=== PATIENT | male | born 1990 | race African-American/Black ===

== ENCOUNTER 2016-12-06 11:43 | Emergency (ER) | payer SELFPAY ==
[~2016-12-06] VITALS: Ht 185.4 cm; Wt 72.6 kg
[~2016-12-06 11:43] MED LIST: DICY10CA53 PO; PANT40TA3 PO
[2016-12-06] MEDS ORDERED: ONDANSETRON PF 4 MG/2 ML VIAL. IV ONE (12:15)
[2016-12-06] MEDS ORDERED: AMMONIA AROMATIC 15% INHALANT AMPUL. ONE (12:21)
[2016-12-06] MEDS ORDERED: FENTANYL PF 100 MCG/2 ML VIAL. IV ONE (12:30)
[2016-12-06] MEDS ORDERED: PROMETHAZINE 12.5 MG in IV NORMAL SALINE 50ML 50 ML IV PRN (12:30)
[2016-12-06 12:41] LABS: BASO % 0 % (0-3); EOS % 0 % (0-3); HEMATOCRIT 45.5 % (39.0-53.0); HEMOGLOBIN 14.6 g/dL (13.0-17.5); LYMPH # 1.9 x10^3/uL (1.0-4.8); LYMPH % 26 % (24-48); MEAN CORPUSCULAR HEMOGLOBIN 27 pg (25-35); MEAN CORPUSCULAR HGB CONC 32 g/dL (31-37); MEAN CORPUSCULAR VOLUME 85 fL (79-100); MONO % 7 % (0-9); NEUT % 66 % (31-73); PLATELET COUNT 207 x10^3/uL (140-400); RED BLOOD COUNT 5.38 x10^6/uL (4.30-5.70); RED CELL DISTRIBUTION WIDTH 14.2 % (11.5-14.5); WHITE BLOOD COUNT 7.1 x10^3/uL (4.0-11.0)
[2016-12-06 12:43] LABS: CALCIUM 9.3 mg/dL (8.5-10.1); CREATININE 0.9 mg/dL (0.7-1.3); GFR 121.6
[2016-12-06 12:49] LABS: ALBUMIN 4.2 g/dL (3.4-5.0); ALBUMIN/GLOBULIN RATIO 1.2 (1.0-1.7); TOTAL BILIRUBIN 1.2 mg/dL (0.2-1.0); TOTAL PROTEIN 7.7 g/dL (6.4-8.2)
[2016-12-06] MEDS ORDERED: MULTIVIT INFUSN,ADULT 4,VIT K 10 ML, FOLIC ACID 1 MG, THIAMINE 100 MG in IV RINGERS,LAC... IV ONE (13:00)
[2016-12-06] MEDS ORDERED: PANTOPRAZOLE IV PUSH 40 MG VIAL. IVP ONE (13:15)
[2016-12-06] MEDS: FENTANYL PF 100 MCG/2 ML VIAL. IV PRN ×2 (13:19→14:30)
--- NOTE | 2016-12-06 14:54 | PHYS DOC ---
Past Medical History Past Medical History: No Pertinent History Past Surgical History: No Surgical History Alcohol Use: Occasionally Drug Use: None Adult General Chief Complaint Chief Complaint: ABDOMINAL PAIN HPI HPI Patient is a 26 year old male brought to the ED with a complaint of abdominal pain, nausea and vomiting. Patient has had similar doesn't patient's to the ED in the past felt to be related to drinking alcohol. Patient did state that this is the case this time as well. Patient stated that he started having abdominal pain first and then a couple hours later started vomiting. No blood in the emesis. He has not taken anything for the pain. He has not been able to keep anything down. PCP none no chronic medical problems Patient denies history of pancreatitis to his knowledge Review of Systems Review of Systems Constitutional: Denies fever or chills [] Eyes: Denies change in visual acuity, redness, or eye pain [] HENT: Denies nasal congestion or sore throat [] Respiratory: Denies cough or shortness of breath [] Cardiovascular: Denies chest pain GI: As in history of present illness : Denies dysuria or hematuria [] Musculoskeletal: Denies back pain or joint pain [] Integument: Denies rash or skin lesions [] Neurologic: Denies headache, focal weakness or sensory changes [] Current Medications Current Medications Current Medications Medications (Trade) Dose Ordered Sig/Jenna Start Time Stop Time Status Last Admin Dose Admin Ammonia (Aromatic Spirit) 1 each 1 each STK-MED ONCE 12/06/16 12:21 12/06/16 12:22 DC Fentanyl Citrate (Fentanyl 2ml Vial) 75 mcg PRN Q15MIN PRN 12/06/16 13:15 12/06/16 15:10 DC 12/06/16 14:30 75 MCG Multivitamins/ Folic Acid/ Thiamine HCl/ Lactated Ringer's (Infuvite Adult/ Iv Lactated Ringers) 1,011.2 ml @ 1,000 mls/ hr 1X ONCE 12/06/16 13:00 12/06/16 14:05 DC 12/06/16 13:00 1,000 MLS/HR Ondansetron HCl (Zofran) 4 mg 1X ONCE 12/06/16 12:15 12/06/16 12:16 DC 12/06/16 12:23 4 MG Pantoprazole Sodium (Protonix Vial) 40 mg 1X ONCE 12/06/16 13:15 12/06/16 13:16 DC 12/06/16 13:21 40 MG Promethazine HCl 12.5 mg/Sodium Chloride 50.5 ml @ 151.5 mls/ hr PRN Q6HRS PRN 12/06/16 12:30 12/06/16 15:10 DC 12/06/16 12:48 151.5 MLS/HR Allergies Allergies Allergies Coded Allergies Type Severity Reaction Last Updated Verified Penicillins Adverse Reaction Mild "DOESN'T WORK" 07/15/15 Yes Physical Exam Physical Exam Constitutional: Well developed, well nourished, diaphoretic, writhing on the cart, will not hold still for exam, yelling out in pain HENT: Normocephalic, atraumatic, bilateral external ears normal, nose normal. [] Eyes: conjunctiva normal, no discharge. [] Neck: Normal range of motion, no stridor. [] Cardiovascular:Heart rate regular rhythm, no murmur [] Lungs & Thorax: Bilateral breath sounds clear to auscultation [] Abdomen: Bowel sounds normal, soft, nondistended, no masses, no pulsatile masses. Light touch of abdomen throughout elicits complaint of pain, no rebound or guarding. Skin: Warm, dry, no erythema, no rash. [] Extremities: No tenderness, no cyanosis, no clubbing, ROM intact, no edema. [] Neurologic: Alert and oriented X 3, normal motor function, normal sensory function, no focal deficits noted. [] Current Patient Data Vital Signs Vital Signs Date Time Temp Pulse Resp B/P Pulse Ox O2 Delivery O2 Flow Rate FiO2 12/06/16 15:00 60 20 151/76 99 Room Air 12/06/16 11:47 97.5 97.5 Lab Values Laboratory Tests Test 12/06/16 12:05 White Blood Count 7.1x10^3/uL (4.0-11.0) Red Blood Count 5.38x10^6/uL (4.30-5.70) Hemoglobin 14.6g/dL (13.0-17.5) Hematocrit 45.5% (39.0-53.0) Mean Corpuscular Volume 85fL (79-100) Mean Corpuscular Hemoglobin 27pg (25-35) Mean Corpuscular Hemoglobin Concent 32g/dL (31-37) Red Cell Distribution Width 14.2% (11.5-14.5) Platelet Count 207x10^3/uL (140-400) Neutrophils (%) (Auto) 66% (31-73) Lymphocytes (%) (Auto) 26% (24-48) Monocytes (%) (Auto) 7% (0-9) Eosinophils (%) (Auto) 0% (0-3) Basophils (%) (Auto) 0% (0-3) Neutrophils # (Auto) 4.7x10^3uL (1.8-7.7) Lymphocytes # (Auto) 1.9x10^3/uL (1.0-4.8) Monocytes # (Auto) 0.5x10^3/uL (0.0-1.1) Eosinophils # (Auto) 0.0x10^3/uL (0.0-0.7) Basophils # (Auto) 0.0x10^3/uL (0.0-0.2) Sodium Level 147mmol/L (136-145) H Potassium Level 4.0mmol/L (3.5-5.1) Chloride Level 104mmol/L (98-107) Carbon Dioxide Level 27mmol/L (21-32) Anion Gap 16 (6-14) H Blood Urea Nitrogen 14mg/dL (8-26) Creatinine 0.9mg/dL (0.7-1.3) Estimated GFR (Cockcroft-Gault) 121.6 BUN/Creatinine Ratio 16 (6-20) Glucose Level 109mg/dL (70-99) H Calcium Level 9.3mg/dL (8.5-10.1) Total Bilirubin 1.2mg/dL (0.2-1.0) H Aspartate Amino Transferase (AST) 22U/L (15-37) Alanine Aminotransferase (ALT) 30U/L (16-63) Alkaline Phosphatase 54U/L (46-116) Total Protein 7.7g/dL (6.4-8.2) Albumin 4.2g/dL (3.4-5.0) Albumin/Globulin Ratio 1.2 (1.0-1.7) Lipase 167U/L (73-393) Laboratory Tests 12/06/16 12:05 Laboratory Tests 3/19/17 12:05 EKG EKG [] Radiology/Procedures Radiology/Procedures [] Course & Med Decision Making Course & Med Decision Making Pertinent Labs and Imaging studies reviewed. (See chart for details) 26-year-old male presents to the ED with abdominal pain and vomiting after alcohol intake yesterday. Patient has had similar presentations in the past. I discussed with the patient IV fluids, IV pain and nausea medications, and he is agreeable to that plan. Patient was given IV pain and nausea medications and did continue to complain of abdominal pain until we were able to get on top of this pain with several doses of IV fentanyl. At one point he accidentally pulled out his IV due to his writhing and also was very diaphoretic, it was restarted by ED nursing staff. Eventually the patient became comfortable and was able to rest, stopped vomiting. He did get one whole banana bag infused. I revisited the patient and he was dozing, I woke him up, he wakes easily to voice, he stated he felt much better and was comfortable with discharge. Labs unremarkable including normal lipase. I advised the patient to stick with small amounts of clear liquids and bland foods for the next 24 hours. [] Dragon Disclaimer Dragon Disclaimer This electronic medical record was generated, in whole or in part, using a voice recognition dictation system. Departure Departure Impression: Primary Impression: Alcoholic gastritis Additional Impression: Vomiting Disposition: 01 HOME, SELF-CARE Condition: STABLE Referrals: NO PCP (PCP) Patient Instructions: Alcohol Problems, Nausea and Vomiting, [id number] Additional Instructions: For the rest of today, rest, drink clear fluids such as Sprite or juices. Don't drink any alcohol. Eat small amounts of bland foods such as bananas, canned fruit, oatmeal. Consider getting help for your alcohol intake. You can talk to your primary care doctor or attend an AA meeting. Problem Qualifiers GEOVANNI MAGANA MD Dec 06, 2016 14:54
[2016-12-06 15:00] VITALS: BP 151/76
== END 2016-12-06 15:07 | disposition home or self-care (01) ==
LOC: MERGE 11:43 → ER 11:43
DX: K29.20 Alcoholic gastritis without bleeding (principal); F10.10 Alcohol abuse, uncomplicated; R11.10 Vomiting, unspecified
CPT/HCPCS: 36415; 80053; 83690; 85027; 96365; 96374; 96375; 96376; 99284; C9113; J2405; J2550; J3010; J7120

== ENCOUNTER 2016-12-06 19:27 | Emergency (ER) | payer SELFPAY ==
[~2016-12-06] VITALS: Ht 180.3 cm; Wt 72.6 kg
[2016-12-06] MEDS ORDERED: IV NORMAL SALINE 1000ML BAG 1,000 ML IV SCH (20:24)
[2016-12-06] MEDS ORDERED: ONDANSETRON PF 4 MG/2 ML VIAL. IV ONE (20:30)
[2016-12-06] MEDS ORDERED: PANTOPRAZOLE IV PUSH 40 MG VIAL. IVP ONE (20:30)
[2016-12-06] MEDS: FENTANYL PF 100 MCG/2 ML VIAL. IV PRN ×2 (20:35→21:56)
--- NOTE | 2016-12-06 20:36 | PHYS DOC ---
Past Medical History Past Medical History: No Pertinent History Past Surgical History: No Surgical History Alcohol Use: Occasionally Drug Use: None Adult General Chief Complaint Chief Complaint: ABDOMINAL PAIN HPI HPI Patient is a 26 year old male who was discharged from the emergency department at about 1500 this afternoon and presents with recurrence of the symptoms. The patient was seen earlier today for abdominal pain, nausea and vomiting, attributed to possibly alcoholic gastritis. Labs were unremarkable, he was given symptomatic treatment and a banana bag in the ED, he felt much better and was discharged. Patient tells me that he continued to feel better, he went home and ate a hotdog and some chicken, and his pain came back and he developed vomiting again. Patient is a difficult historian since he is writhing around in pain and yelling out in pain, not responding very well to questions, requesting pain medications. Patient has had similar presentations with abdominal pain and vomiting to the emergency department in the past and has required hospitalization in the past, but I did not see a specific diagnosis other than alcohol related. PCP none, no chronic medical problems Review of Systems Review of Systems Constitutional: Denies fever or chills [] Eyes: Denies change in visual acuity, redness, or eye pain [] HENT: Denies nasal congestion or sore throat [] Respiratory: Denies cough or shortness of breath [] Cardiovascular: Denies chest pain GI: As in history of present illness : Denies dysuria or hematuria [] Musculoskeletal: Denies back pain or joint pain [] Integument: Denies rash or skin lesions [] Neurologic: Denies headache, focal weakness or sensory changes [] Current Medications Current Medications Current Medications Medications (Trade) Dose Ordered Sig/Jenna Start Time Stop Time Status Last Admin Dose Admin Fentanyl Citrate (Fentanyl 2ml Vial) 100 mcg PRN Q15MIN PRN 12/06/16 20:30 12/07/16 00:15 DC 12/06/16 21:56 100 MCG Info (Do NOT chart on this entry -- for MONITORING) 1 each PRN DAILY PRN 12/06/16 23:00 12/07/16 00:15 DC Iohexol (Omnipaque 300 Mg/ml) 75 ml 1X ONCE 12/06/16 23:00 12/06/16 23:01 DC 12/06/16 23:06 75 ML Ondansetron HCl (Zofran) 4 mg 1X ONCE 12/06/16 20:30 12/06/16 20:31 DC 12/06/16 20:37 4 MG Pantoprazole Sodium (Protonix Vial) 40 mg 1X ONCE 12/06/16 20:30 12/06/16 20:31 DC 12/06/16 20:38 40 MG Sodium Chloride (Iv Sodium Chloride 0.9% 1000ml Bag) 1,000 ml @ 1,000 mls/hr Q1H 12/06/16 20:24 12/06/16 21:23 DC 12/06/16 20:35 1,000 MLS/HR Allergies Allergies Allergies Coded Allergies Type Severity Reaction Last Updated Verified Penicillins Adverse Reaction Mild "DOESN'T WORK" 07/15/15 Yes Physical Exam Physical Exam Constitutional: Well developed, well nourished, diaphoretic, writhing on the cart, will not hold still for exam, yelling and crying out in pain, has vomited brownish benign appearing liquid into a basin HENT: Normocephalic, atraumatic, bilateral external ears normal, nose normal. [] Eyes: conjunctiva normal, no discharge. [] Neck: Normal range of motion, no stridor. [] Cardiovascular:Heart rate regular rhythm, no murmur [] Lungs & Thorax: Bilateral breath sounds clear to auscultation [] Abdomen: Bowel sounds normal, soft, nondistended, no masses, no pulsatile masses. Exam is difficult because the patient is not able to lay still and will be repeated after he is more comfortable. Skin: Warm, dry, no erythema, no rash. [] Extremities: No tenderness, no cyanosis, no clubbing, ROM intact, no edema. [] Neurologic: Alert and oriented X 3, normal motor function, normal sensory function, no focal deficits noted. [] Current Patient Data Vital Signs Vital Signs Date Time Temp Pulse Resp B/P Pulse Ox O2 Delivery O2 Flow Rate FiO2 12/06/16 22:00 97.9 90 126/86 98 97.9 12/06/16 21:56 22 Room Air Lab Values Laboratory Tests Test 12/06/16 20:06 12/06/16 23:14 White Blood Count 11.0x10^3/uL (4.0-11.0) # Red Blood Count 5.08x10^6/uL (4.30-5.70) Hemoglobin 13.7g/dL (13.0-17.5) Hematocrit 41.3% (39.0-53.0) Mean Corpuscular Volume 81fL (79-100) Mean Corpuscular Hemoglobin 27pg (25-35) Mean Corpuscular Hemoglobin Concent 33g/dL (31-37) Red Cell Distribution Width 13.7% (11.5-14.5) Platelet Count 211x10^3/uL (140-400) Neutrophils (%) (Auto) 77% (31-73) H Lymphocytes (%) (Auto) 15% (24-48) L Monocytes (%) (Auto) 8% (0-9) Eosinophils (%) (Auto) 0% (0-3) Basophils (%) (Auto) 0% (0-3) Neutrophils # (Auto) 8.5x10^3uL (1.8-7.7) H Lymphocytes # (Auto) 1.6x10^3/uL (1.0-4.8) Monocytes # (Auto) 0.9x10^3/uL (0.0-1.1) Eosinophils # (Auto) 0.0x10^3/uL (0.0-0.7) Basophils # (Auto) 0.0x10^3/uL (0.0-0.2) Sodium Level 144mmol/L (136-145) Potassium Level 4.1mmol/L (3.5-5.1) Chloride Level 104mmol/L (98-107) Carbon Dioxide Level 26mmol/L (21-32) Anion Gap 14 (6-14) Blood Urea Nitrogen 17mg/dL (8-26) Creatinine 1.2mg/dL (0.7-1.3) Estimated GFR (Cockcroft-Gault) 87.2 BUN/Creatinine Ratio 14 (6-20) Glucose Level 104mg/dL (70-99) H Calcium Level 9.6mg/dL (8.5-10.1) Total Bilirubin 1.4mg/dL (0.2-1.0) H Aspartate Amino Transferase (AST) 22U/L (15-37) Alanine Aminotransferase (ALT) 28U/L (16-63) Alkaline Phosphatase 47U/L (46-116) Total Protein 7.3g/dL (6.4-8.2) Albumin 4.2g/dL (3.4-5.0) Albumin/Globulin Ratio 1.4 (1.0-1.7) Lipase 79U/L (73-393) Urine Opiates Screen Neg (NEG) Urine Methadone Screen Neg (NEG) Urine Barbiturates Neg (NEG) Urine Phencyclidine Screen Neg (NEG) Urine Amphetamine/Methamphetamine Neg (NEG) Urine Benzodiazepines Screen Neg (NEG) Urine Cocaine Screen Neg (NEG) Urine Cannabinoids Screen Pos (NEG) Urine Ethyl Alcohol Neg (NEG) Laboratory Tests 12/06/16 20:06 Laboratory Tests 12/06/16 20:06 EKG EKG [] Radiology/Procedures Radiology/Procedures CT scan of the abdomen and pelvis read by the radiologist, no acute findings. [] Course & Med Decision Making Course & Med Decision Making Pertinent Labs and Imaging studies reviewed. (See chart for details) 26-year-old male returns with abdominal pain and vomiting after being seen earlier today and symptoms improving after ED treatment. I discussed with the patient that we will again give him IV pain and nausea medications, IV fluids, and recheck some labs, he is agreeable to that plan. After IV fluids, IV pain and nausea medicines, the patient was much more comfortable and was able to cooperate with a CT scan which was negative for acute findings. I revisited the patient and he states he is feeling much better. Patient's drug screen was positive for marijuana. I discussed with the patient that sometimes marijuana use can cause nausea and vomiting, other times withdrawal from marijuana can cause those symptoms, I encouraged him to think about whether his recurrent episodes of vomiting and abdominal pain might be related to marijuana use or withdrawal. He said he didn't think that they could be. I once again advised the patient to stick with just small amounts of clear liquids over the next 12-24 hours, advance diet very slowly and I discussed some of the things that would be easy on his stomach for the next 1-2 days. No solid foods and certainly nothing spicy or greasy. Patient was stable and comfortable and discharged to home with his roommate. [] Dragon Disclaimer Dragon Disclaimer This electronic medical record was generated, in whole or in part, using a voice recognition dictation system. Departure Departure Impression: Primary Impression: Alcoholic gastritis Additional Impression: Vomiting Disposition: HOME, SELF-CARE Condition: IMPROVED Referrals: NO PCP (PCP) Patient Instructions: Nausea and Vomiting Additional Instructions: For 12-24 hours, take only small sips of clear liquids such as Sprite, or Gatorade. After that, take only small bites of very bland foods like canned peaches, chicken noodle soup, or oatmeal. Don't eat anything more than a couple of small bites every 1-2 hours. As we discussed, sometimes when people smoke marijuana, either the marijuana can cause nausea and vomiting or withdrawing from the marijuana can cause that. Since this has happened to use several times in the past, think about whether your marijuana use might be contributing to these attacks of vomiting, it might be worth trying to go for a period of time without smoking marijuana to see if that helps. Problem Qualifiers GEOVANNI MAGANA MD Dec 06, 2016 20:36
[2016-12-06 20:38] LABS: BASO % 0 % (0-3); EOS % 0 % (0-3); HEMATOCRIT 41.3 % (39.0-53.0); HEMOGLOBIN 13.7 g/dL (13.0-17.5); LYMPH # 1.6 x10^3/uL (1.0-4.8); LYMPH % 15 % (24-48); MEAN CORPUSCULAR HEMOGLOBIN 27 pg (25-35); MEAN CORPUSCULAR HGB CONC 33 g/dL (31-37); MEAN CORPUSCULAR VOLUME 81 fL (79-100); MONO % 8 % (0-9); NEUT % 77 % (31-73); PLATELET COUNT 211 x10^3/uL (140-400); RED BLOOD COUNT 5.08 x10^6/uL (4.30-5.70); RED CELL DISTRIBUTION WIDTH 13.7 % (11.5-14.5)
[2016-12-06 20:52] LABS: CALCIUM 9.6 mg/dL (8.5-10.1); CREATININE 1.2 mg/dL (0.7-1.3); GFR 87.2; POTASSIUM 4.1 mmol/L (3.5-5.1)
[2016-12-06 21:00] LABS: ALBUMIN 4.2 g/dL (3.4-5.0); ALBUMIN/GLOBULIN RATIO 1.4 (1.0-1.7); TOTAL BILIRUBIN 1.4 mg/dL (0.2-1.0); TOTAL PROTEIN 7.3 g/dL (6.4-8.2)
[2016-12-06 22:00] VITALS: BP 126/86
[2016-12-06] MEDS ORDERED: CONTRAST GIVEN MC PRN (23:00)
[2016-12-06] MEDS ORDERED: IOHEXOL 300 MG/ML 75 ML VIAL IV ONE (23:00)
[2016-12-06 23:30] LABS: BARBITURATES NEG (NEG); BENZODIAZEPINES NEG (NEG); CANNABINOIDS POS (NEG); COCAINE NEG (NEG); ETHANOL, URINE NEG (NEG); METHADONE NEG (NEG); OPIATES NEG (NEG); PHENCYCLIDINE NEG (NEG)
--- NOTE | 2016-12-06 23:35 | RAD ---
CT abdomen and pelvis with contrast: Reason for examination: Abdominal pain with vomiting. Helical images were obtained through the abdomen and pelvis with intravenous administration of 75 cc Omnipaque 300. Reconstruction was performed in sagittal and coronal planes. The lung bases are clear. The heart size is normal with no pericardial effusion evident. No abnormalities seen in the liver, spleen, adrenal glands, gallbladder or pancreas. The abdominal aorta and inferior vena cava show no abnormalities. The kidneys show no renal masses, renal calculi, hydronephrosis or evidence of obstructive uropathy. No abnormalities seen in the appendix. The intestinal tract shows no abnormally dilated loops of bowel or evidence of bowel obstruction. No abnormalities seen in the bladder or prostate gland. No free fluid or free air is seen in the abdomen or pelvis. No acute bony abnormalities are seen. Impression: No acute abnormality evident in the abdomen or pelvis. Specifically no abnormalities seen in the gallbladder or appendix. Exposure: One or more of the following individualized dose reduction techniques were used for this examination: 1. Automated exposure control. 2. Adjustment of the mA and/or kV according to patient size. 3. Use of iterative reconstruction technique. Electronically signed by: Jelena Duncan MD (Dec 06, 2016 23:33:12)
== END 2016-12-07 00:14 | disposition home or self-care (01) ==
LOC: ER 19:27 → MERGE 19:27 → ER 12-07 00:14
DX: K29.20 Alcoholic gastritis without bleeding (principal); R11.10 Vomiting, unspecified; Z88.0 Allergy status to penicillin
CPT/HCPCS: 36415; 74177; 80053; 83690; 85027; 96361; 96374; 96375; 99285; C9113; G0481; J2405; J3010; J7030; Q9967

== ENCOUNTER 2017-01-03 12:06 | Emergency (ER) | payer SELFPAY ==
[~2017-01-03] VITALS: Ht 177.8 cm; Wt 68.0 kg
[2017-01-03 12:36] LABS: BASO % 0 % (0-3); EOS % 0 % (0-3); HEMATOCRIT 43.9 % (39.0-53.0); HEMOGLOBIN 14.3 g/dL (13.0-17.5); LYMPH # 1.8 x10^3/uL (1.0-4.8); LYMPH % 23 % (24-48); MEAN CORPUSCULAR HEMOGLOBIN 27 pg (25-35); MEAN CORPUSCULAR HGB CONC 33 g/dL (31-37); MEAN CORPUSCULAR VOLUME 83 fL (79-100); MONO % 6 % (0-9); NEUT % 70 % (31-73); PLATELET COUNT 188 x10^3/uL (140-400); RED BLOOD COUNT 5.28 x10^6/uL (4.30-5.70); RED CELL DISTRIBUTION WIDTH 13.8 % (11.5-14.5); WHITE BLOOD COUNT 7.7 x10^3/uL (4.0-11.0)
--- NOTE | 2017-01-03 12:44 | PHYS DOC ---
Past Medical History Past Medical History: No Pertinent History Past Surgical History: No Surgical History Alcohol Use: Occasionally Additional Information: DRINKS ON WEEKENDS, 3 TO 4 CUPS, PRETTY STRONG CUPS. VOSDKA, DARK WHISKEY Drug Use: Marijuana Adult General Chief Complaint Chief Complaint: ABDOMINAL PAIN HPI HPI Patient is a 26 year old male who presents with abdominal pain. Patient reports starting this morning he has been having sharp epigastric/LUQ pain. Pain accompanied by nausea and vomiting; emesis x3-4 today. He has not taken anything for symptoms. Symptoms similar to prior bouts of alcoholic gastritis; he did drink several strong drinks on Wednesday night. No other acute complaints. Review of Systems Review of Systems Constitutional: Denies fever or chills HENT: Denies nasal congestion or sore throat Respiratory: Denies cough or shortness of breath Cardiovascular: Denies chest pain GI: Epigastric/LUQ, nausea, vomiting. Denies bloody stools or diarrhea : Denies dysuria or hematuria Musculoskeletal: Denies back pain or joint pain Integument: Denies rash or skin lesions Neurologic: Denies headache, focal weakness or sensory changes Current Medications Current Medications Current Medications Medications (Trade) Dose Ordered Sig/Jenna Start Time Stop Time Status Last Admin Dose Admin Acetaminophen/ Hydrocodone Bitart (Lortab 5/325) 2 tab 1X ONCE 01/03/17 14:00 01/03/17 14:03 DC 01/03/17 14:06 2 TAB Famotidine (Pepcid) 20 mg 1X ONCE 01/03/17 12:45 01/03/17 12:46 DC 01/03/17 12:41 20 MG Morphine Sulfate 4 mg 1X ONCE 01/03/17 13:15 01/03/17 13:16 DC 01/03/17 13:24 4 MG Multi-Ingredient Mouthwash/Gargle 15 ml 15 ml 1X ONCE 01/03/17 12:45 01/03/17 12:46 DC 01/03/17 12:46 15 ML Ondansetron HCl (Zofran) 4 mg 1X ONCE 01/03/17 12:45 01/03/17 12:46 DC 01/03/17 12:40 4 MG Pantoprazole Sodium (Protonix) 40 mg 1X ONCE 01/03/17 13:15 01/03/17 13:16 DC 01/03/17 13:23 40 MG Prochlorperazine Edisylate (Compazine) 10 mg 1X ONCE 01/03/17 13:15 01/03/17 13:16 DC 01/03/17 13:23 10 MG Sodium Chloride (Iv Sodium Chloride 0.9% 1000ml Bag) 1,000 ml @ 1,000 mls/hr Q1H 01/03/17 12:45 01/03/17 13:44 DC 01/03/17 12:39 1,000 MLS/HR Allergies Allergies Allergies Coded Allergies Type Severity Reaction Last Updated Verified Penicillins Adverse Reaction Mild "DOESN'T WORK" 12/09/16 Yes Physical Exam Physical Exam Constitutional: Well developed, well nourished, non-toxic appearance HENT: Normocephalic, atraumatic, bilateral external ears normal Eyes: EOMI, conjunctiva normal, no discharge Neck: Normal range of motion, no stridor Cardiovascular: Heart rate normal, regular rhythm, no murmur Lungs & Thorax: Bilateral breath sounds clear to auscultation Abdomen: Bowel sounds normal, soft, non-distended, epigastric/LUQ TTP without rebound tenderness Skin: Warm, dry, no erythema, no rash Extremities: No obvious deformity, no edema Neurologic: Alert and oriented X 3, no gross deficits noted Psychologic: Affect normal, judgement normal, mood normal Current Patient Data Vital Signs Vital Signs Date Time Temp Pulse Resp B/P Pulse Ox O2 Delivery O2 Flow Rate FiO2 01/03/17 14:06 20 96 Room Air 01/03/17 12:18 97.7 85 149/102 97.7 Lab Values Laboratory Tests Test 01/03/17 12:25 White Blood Count 7.7x10^3/uL (4.0-11.0) Red Blood Count 5.28x10^6/uL (4.30-5.70) Hemoglobin 14.3g/dL (13.0-17.5) Hematocrit 43.9% (39.0-53.0) Mean Corpuscular Volume 83fL (79-100) Mean Corpuscular Hemoglobin 27pg (25-35) Mean Corpuscular Hemoglobin Concent 33g/dL (31-37) Red Cell Distribution Width 13.8% (11.5-14.5) Platelet Count 188x10^3/uL (140-400) Neutrophils (%) (Auto) 70% (31-73) Lymphocytes (%) (Auto) 23% (24-48) L Monocytes (%) (Auto) 6% (0-9) Eosinophils (%) (Auto) 0% (0-3) Basophils (%) (Auto) 0% (0-3) Neutrophils # (Auto) 5.4x10^3uL (1.8-7.7) Lymphocytes # (Auto) 1.8x10^3/uL (1.0-4.8) Monocytes # (Auto) 0.5x10^3/uL (0.0-1.1) Eosinophils # (Auto) 0.0x10^3/uL (0.0-0.7) Basophils # (Auto) 0.0x10^3/uL (0.0-0.2) Sodium Level 139mmol/L (136-145) Potassium Level 4.1mmol/L (3.5-5.1) Chloride Level 101mmol/L (98-107) Carbon Dioxide Level 27mmol/L (21-32) Anion Gap 11 (6-14) Blood Urea Nitrogen 16mg/dL (8-26) Creatinine 1.1mg/dL (0.7-1.3) Estimated GFR (Cockcroft-Gault) 96.4 BUN/Creatinine Ratio 15 (6-20) Glucose Level 109mg/dL (70-99) H Calcium Level 9.5mg/dL (8.5-10.1) Total Bilirubin 1.4mg/dL (0.2-1.0) H Aspartate Amino Transferase (AST) 17U/L (15-37) Alanine Aminotransferase (ALT) 25U/L (16-63) Alkaline Phosphatase 61U/L (46-116) Total Protein 7.8g/dL (6.4-8.2) Albumin 4.4g/dL (3.4-5.0) Albumin/Globulin Ratio 1.3 (1.0-1.7) Lipase 108U/L (73-393) Laboratory Tests 01/03/17 12:25 Laboratory Tests 01/03/17 12:25 EKG EKG [] Radiology/Procedures Radiology/Procedures [] Course & Med Decision Making Course & Med Decision Making Pertinent Labs and Imaging studies reviewed. (See chart for details) Patient is 26 year old male who presents with LUQ/epigastric pain. Suspect alcoholic gastritis. Will check labs to evaluate (such as for pancreatitis). IV fluids, pain meds, nausea meds, GI cocktail ordered for relief of symptoms. Blood work largely unremarkable; total bilirubin mildly elevated but at baseline. Discussed results with patient, who continues to have pain but is feeling better. I discussed refraining from any further alcohol use given pain that he experiences afterwards. Will discharge with rx for protonix, phenergan, and carafate, instructions for follow up, return precautions. Dragon Disclaimer Dragon Disclaimer This electronic medical record was generated, in whole or in part, using a voice recognition dictation system. Departure Departure Impression: Primary Impression: Alcoholic gastritis Disposition: HOME, SELF-CARE Condition: STABLE Referrals: MYLES CHAMPION (PCP) Patient Instructions: Alcoholic Gastritis-Brief Additional Instructions: Thank you for allowing us to provide care today in the Emergency Department. Your symptoms appear to be caused by your recent alcohol use. Refrain from drinking any further alcohol as it will make your abdominal pain worse. Take the provided medication as directed. Schedule a follow up appointment with your primary care doctor. Return promptly to the Emergency Department if you develop any new or concerning symptoms. Scripts Promethazine Hcl 25 Mg [id number] Mg PO Q6H PRN NAUSEA/VOMITING #15 TAB Prov:DALILA MEYER MD 01/03/17 Sucralfate (Carafate)1 Gm Tablet1 Tab PO QID #120 TAB Ref 0 Prov:DALILA MEYER MD 01/03/17 Pantoprazole Sodium (Protonix)40 Mg Tablet.dr1 Tab PO DAILY #30 TAB Ref 0 Prov:DALILA MEYER MD 01/03/17 DALILA MEYER MD Jan 03, 2017 12:44
[2017-01-03] MEDS ORDERED: LIDO:MAALOX:DONNATAL 1:1:1 15 ML SINGLE DOSE SWSW ONE (12:45)
[2017-01-03] MEDS ORDERED: FAMOTIDINE 20 MG/2 ML VIAL IVP ONE (12:45)
[2017-01-03] MEDS ORDERED: MORPHINE SULFATE 4 MG/ML DISP.SYRIN. IV ONE ×2 (12:45→13:15)
[2017-01-03] MEDS ORDERED: ONDANSETRON PF 4 MG/2 ML VIAL. IV ONE (12:45)
[2017-01-03] MEDS ORDERED: IV NORMAL SALINE 1000ML BAG 1,000 ML IV SCH (12:45)
[2017-01-03 12:48] LABS: CALCIUM 9.5 mg/dL (8.5-10.1); CREATININE 1.1 mg/dL (0.7-1.3); GFR 96.4; POTASSIUM 4.1 mmol/L (3.5-5.1)
[2017-01-03 12:53] LABS: ALBUMIN 4.4 g/dL (3.4-5.0); ALBUMIN/GLOBULIN RATIO 1.3 (1.0-1.7); TOTAL BILIRUBIN 1.4 mg/dL (0.2-1.0); TOTAL PROTEIN 7.8 g/dL (6.4-8.2)
[2017-01-03] MEDS ORDERED: PANTOPRAZOLE 40 MG TABLET.DR. PO ONE (13:15)
[2017-01-03] MEDS ORDERED: PROCHLORPERAZINE 10 MG/2 ML VIAL. IV ONE (13:15)
[2017-01-03] MEDS ORDERED: HYDROCODONE/APAP 5/325MG TABLET. PO ONE (14:00)
[2017-01-03] MEDS ORDERED: PROM25TA10 PO (14:03)
[2017-01-03] MEDS ORDERED: PANT40TA3 PO (14:03)
[2017-01-03] MEDS ORDERED: SUCR1TAB29 PO (14:03)
[2017-01-03 14:06] VITALS: BP 118/86
== END 2017-01-03 14:12 | disposition home or self-care (01) ==
LOC: ER 12:06
DX: K29.20 Alcoholic gastritis without bleeding (principal); F12.10 Cannabis abuse, uncomplicated; Z88.0 Allergy status to penicillin
CPT/HCPCS: 36415; 80053; 83690; 85027; 96361; 96374; 96375; 96376; 99284; J0780; J2270; J2405; J7030; S0028; 99285-25

== ENCOUNTER 2017-01-06 19:19 | Emergency (ER) | payer SELFPAY ==
[~2017-01-06] VITALS: Ht 177.8 cm; Wt 68.0 kg
[~2017-01-06 19:19] MED LIST changes: +PROM25TA10 PO; +SUCR1TAB29 PO
[2017-01-06 19:22] VITALS: BP 106/58
[2017-01-06 19:57] LABS: BASO % 1 % (0-3); EOS % 2 % (0-3); HEMATOCRIT 39.3 % (39.0-53.0); HEMOGLOBIN 13.1 g/dL (13.0-17.5); LYMPH # 3.1 x10^3/uL (1.0-4.8); LYMPH % 41 % (24-48); MEAN CORPUSCULAR HEMOGLOBIN 28 pg (25-35); MEAN CORPUSCULAR HGB CONC 34 g/dL (31-37); MEAN CORPUSCULAR VOLUME 83 fL (79-100); MONO % 9 % (0-9); NEUT % 48 % (31-73); PLATELET COUNT 179 x10^3/uL (140-400); RED BLOOD COUNT 4.73 x10^6/uL (4.30-5.70); RED CELL DISTRIBUTION WIDTH 13.5 % (11.5-14.5); WHITE BLOOD COUNT 7.7 x10^3/uL (4.0-11.0)
[2017-01-06 20:07] LABS: CALCIUM 9.2 mg/dL (8.5-10.1); GFR 107.7; POTASSIUM 3.4 mmol/L (3.5-5.1)
[2017-01-06 20:13] LABS: ALBUMIN 4.1 g/dL (3.4-5.0); ALBUMIN/GLOBULIN RATIO 1.4 (1.0-1.7); TOTAL BILIRUBIN 1.1 mg/dL (0.2-1.0); TOTAL PROTEIN 7.1 g/dL (6.4-8.2)
[2017-01-06] MEDS ORDERED: IV NORMAL SALINE 1000ML BAG 1,000 ML IV SCH (20:15)
[2017-01-06] MEDS ORDERED: HALOPERIDOL LACTATE 5 MG/ML VIAL. IVP ONE (20:15)
--- NOTE | 2017-01-06 20:20 | PHYS DOC ---
Past Medical History Past Medical History: No Pertinent History Past Surgical History: No Surgical History Alcohol Use: Occasionally Drug Use: Marijuana Adult General Chief Complaint Chief Complaint: ABDOMINAL PAIN HPI HPI Patient is a 26 year old male who presents with complaint of abdominal pain and vomiting. Patient has had multiple visits to the emergency department for treatment of alcoholic gastritis. Patient was last seen 3 days ago for the same symptoms. Patient states that his symptoms improved after treatment, however they worsened starting today. Patient states that he has been having difficulty advancing his diet secondary to worsening symptoms. Patient admits that he has not filled the medications that were prescribed to him to help with his symptoms from his previous visit. Patient denies any fevers or hematemesis. Patient has not taken any medications for his symptoms at home. Patient rates his pain currently as 6 out of 10. Review of Systems Review of Systems Constitutional: Denies fever or chills [] Eyes: Denies change in visual acuity, redness, or eye pain [] HENT: Denies nasal congestion or sore throat [] Respiratory: Denies cough or shortness of breath [] Cardiovascular: Denies chest pain or edema [] GI: Abdominal pain, nausea, vomiting, denies bloody stools or diarrhea [] : Denies dysuria or hematuria [] Musculoskeletal: Denies back pain or joint pain [] Integument: Denies rash or skin lesions [] Neurologic: Denies headache, focal weakness or sensory changes [] Current Medications Current Medications Current Medications Medications (Trade) Dose Ordered Sig/Jenna Start Time Stop Time Status Last Admin Dose Admin Fentanyl Citrate (Fentanyl 2ml Vial) 50 mcg 1X ONCE 01/06/17 20:30 01/06/17 20:31 DC 01/06/17 20:10 50 MCG Haloperidol Lactate (Haldol) 5 mg 1X ONCE 01/06/17 20:15 01/06/17 20:16 DC 01/06/17 20:15 5 MG Multi-Ingredient Mouthwash/Gargle 15 ml 15 ml 1X ONCE 01/06/17 20:30 01/06/17 20:31 DC 01/06/17 20:11 15 ML Ondansetron HCl (Zofran) 4 mg 1X ONCE 01/06/17 20:30 01/06/17 20:31 DC 01/06/17 20:06 4 MG Sodium Chloride (Iv Sodium Chloride 0.9% 1000ml Bag) 1,000 ml @ 1,000 mls/hr Q1H 01/06/17 20:15 01/06/17 21:14 01/06/17 20:03 1,000 MLS/HR Allergies Allergies Allergies Coded Allergies Type Severity Reaction Last Updated Verified Penicillins Adverse Reaction Mild "DOESN'T WORK" 12/09/16 Yes Physical Exam Physical Exam Constitutional: Alert, afebrile, appears in mild to moderate discomfort. [] HENT: Normocephalic, atraumatic, bilateral external ears normal, oropharynx moist, no oral exudates, nose normal. [] Eyes: PERRLA, EOMI, conjunctiva normal, no discharge. [] Neck: Normal range of motion, no tenderness, supple, no stridor. [] Cardiovascular:Heart rate regular rhythm, no murmur [] Lungs & Thorax: Bilateral breath sounds clear to auscultation [] Abdomen: Bowel sounds normal, soft, epigastric tenderness to palpation, no masses, no pulsatile masses. [] Skin: Warm, dry, no erythema, no rash. [] Back: No tenderness, no CVA tenderness. [] Extremities: No tenderness, no cyanosis, no clubbing, ROM intact, no edema. [] Neurologic: Alert and oriented X 3, normal motor function, normal sensory function, no focal deficits noted. [] Current Patient Data Vital Signs Vital Signs Date Time Temp Pulse Resp B/P Pulse Ox O2 Delivery O2 Flow Rate FiO2 01/06/17 20:10 16 01/06/17 19:22 98.4 50 106/58 94 Room Air 98.4 Lab Values Laboratory Tests Test 01/06/17 19:33 White Blood Count 7.7x10^3/uL (4.0-11.0) Red Blood Count 4.73x10^6/uL (4.30-5.70) Hemoglobin 13.1g/dL (13.0-17.5) Hematocrit 39.3% (39.0-53.0) Mean Corpuscular Volume 83fL (79-100) Mean Corpuscular Hemoglobin 28pg (25-35) Mean Corpuscular Hemoglobin Concent 34g/dL (31-37) Red Cell Distribution Width 13.5% (11.5-14.5) Platelet Count 179x10^3/uL (140-400) Neutrophils (%) (Auto) 48% (31-73) Lymphocytes (%) (Auto) 41% (24-48) Monocytes (%) (Auto) 9% (0-9) Eosinophils (%) (Auto) 2% (0-3) Basophils (%) (Auto) 1% (0-3) Neutrophils # (Auto) 3.7x10^3uL (1.8-7.7) Lymphocytes # (Auto) 3.1x10^3/uL (1.0-4.8) Monocytes # (Auto) 0.7x10^3/uL (0.0-1.1) Eosinophils # (Auto) 0.1x10^3/uL (0.0-0.7) Basophils # (Auto) 0.0x10^3/uL (0.0-0.2) Sodium Level 142mmol/L (136-145) Potassium Level 3.4mmol/L (3.5-5.1) L Chloride Level 104mmol/L (98-107) Carbon Dioxide Level 30mmol/L (21-32) Anion Gap 8 (6-14) Blood Urea Nitrogen 17mg/dL (8-26) Creatinine 1.0mg/dL (0.7-1.3) Estimated GFR (Cockcroft-Gault) 107.7 BUN/Creatinine Ratio 17 (6-20) Glucose Level 84mg/dL (70-99) Calcium Level 9.2mg/dL (8.5-10.1) Total Bilirubin 1.1mg/dL (0.2-1.0) H Aspartate Amino Transferase (AST) 15U/L (15-37) Alanine Aminotransferase (ALT) 24U/L (16-63) Alkaline Phosphatase 54U/L (46-116) Total Protein 7.1g/dL (6.4-8.2) Albumin 4.1g/dL (3.4-5.0) Albumin/Globulin Ratio 1.4 (1.0-1.7) Lipase 162U/L (73-393) Laboratory Tests 01/06/17 19:33 Laboratory Tests 01/06/17 19:33 EKG EKG Not performed [] Radiology/Procedures Radiology/Procedures Not performed [] Course & Med Decision Making Course & Med Decision Making Pertinent Labs and Imaging studies reviewed. (See chart for details) Patient was given IV fluids, fentanyl, Zofran, GI cocktail, and Haldol. Lab work pending at time of sign out. Care of patient was signed out to Dr. Rios at 2035. Dragon Disclaimer Dragon Disclaimer This electronic medical record was generated, in whole or in part, using a voice recognition dictation system. Departure Departure Impression: Primary Impression: Abdominal pain Additional Impression: Nausea and vomiting Referrals: NO PCP (PCP) Problem Qualifiers Primary Impression: Abdominal pain Abdominal location: epigastric Qualified Code: R10.13 - Epigastric pain Additional Impression: Nausea and vomiting Vomiting type: unspecified Vomiting Intractability: non-intractable Qualified Code: R11.2 - Nausea with vomiting, unspecified KALEY PARDO MD Jan 06, 2017 20:20
[2017-01-06] MEDS ORDERED: ONDANSETRON PF 4 MG/2 ML VIAL. IV ONE (20:30)
[2017-01-06] MEDS ORDERED: LIDO:MAALOX:DONNATAL 1:1:1 15 ML SINGLE DOSE SWSW ONE (20:30)
[2017-01-06] MEDS ORDERED: FENTANYL PF 100 MCG/2 ML VIAL. IV ONE (20:30)
[2017-01-06 20:48] LABS: BILIRUBIN,URINE NEGATIVE (NEG); GLUCOSE,URINE NEGATIVE (NEG); NITRITE,URINE NEGATIVE (NEG); PH,URINE 8.5; PROTEIN,URINE NEGATIVE (NEG-TRACE)
[2017-01-06 20:54] LABS: BACTERIA,URINE 0 /HPF (0-FEW); RBC,URINE 0 /HPF (0-2); SQUAMOUS EPITHELIAL CELL,UR OCC /LPF; WBC,URINE 0 /HPF (0-4)
== END 2017-01-06 21:42 | disposition home or self-care (01) ==
LOC: ER 19:19
DX: R10.13 Epigastric pain (principal); R10.32 Left lower quadrant pain; R11.2 Nausea with vomiting, unspecified; F12.10 Cannabis abuse, uncomplicated; Z88.0 Allergy status to penicillin
CPT/HCPCS: 36415; 80053; 81001; 83690; 85027; 87086; 96361; 96374; 96375; 99284; J1630; J2405; J3010; J7030

== ENCOUNTER 2017-01-25 07:12 | Emergency (ER) | payer SELFPAY ==
[~2017-01-25] VITALS: Ht 180.3 cm; Wt 63.5 kg
[2017-01-25] MEDS ORDERED: FAMOTIDINE 20 MG/2 ML VIAL IVP ONE (07:45)
[2017-01-25] MEDS ORDERED: ONDANSETRON PF 4 MG/2 ML VIAL. IV ONE (07:45)
[2017-01-25] MEDS ORDERED: IV NORMAL SALINE 1000ML BAG 1,000 ML IV ONE (07:45)
--- NOTE | 2017-01-25 07:45 | PHYS DOC ---
Past Medical History Past Medical History: No Pertinent History Past Surgical History: No Surgical History Alcohol Use: Occasionally Drug Use: Marijuana Adult General Chief Complaint Chief Complaint: ABDOMINAL PAIN HPI HPI Patient is a 26 year old male with history of alcoholic gastritis who presents today with left upper quadrant abdominal pain that he states has been going on for months. Patient states he was at work this morning and decided to come to the ED to be evaluated. He is also complaining of nausea and vomiting. Denies any diarrhea. He states the last time he drank was 1-1/2 months ago. Patient denies any hematemesis. Patient is restless, cursing, and crying out loud. very poor historian. I asked him if he has followed up with GI he states he does not know how to read and hence does not know where to find information on following up. Review of Systems Review of Systems Constitutional: Denies fever or chills [] Eyes: Denies change in visual acuity, redness, or eye pain [] HENT: Denies nasal congestion or sore throat [] Respiratory: Denies cough or shortness of breath [] Cardiovascular: No additional information not addressed in HPI [] GI:LUQ abdominal pain, nausea, vomiting, : Denies dysuria or hematuria [] Musculoskeletal: Denies back pain or joint pain [] Integument: Denies rash or skin lesions [] Neurologic: Denies headache, focal weakness or sensory changes [] Endocrine: Denies polyuria or polydipsia [] Current Medications Current Medications Current Medications Medications (Trade) Dose Ordered Sig/Jenna Start Time Stop Time Status Last Admin Dose Admin Famotidine (Pepcid) 20 mg 1X ONCE 01/25/17 07:45 01/25/17 07:46 DC 01/25/17 07:51 20 MG Fentanyl Citrate (Fentanyl 2ml Vial) 50 mcg 1X ONCE 01/25/17 07:45 01/25/17 07:46 DC 01/25/17 08:00 50 MCG Haloperidol Lactate (Haldol) 5 mg 1X ONCE 01/25/17 08:15 01/25/17 08:16 DC 01/25/17 08:28 5 MG Info (Do NOT chart on this entry -- for MONITORING) 1 each PRN DAILY PRN 01/25/17 09:15 01/27/17 09:14 Iohexol (Omnipaque 300 Mg/ml) 75 ml 1X ONCE 5/8/17 09:15 01/25/17 09:16 DC 01/25/17 09:20 75 ML Ketamine HCl 10 mg 1X ONCE 01/25/17 08:45 01/25/17 08:46 DC 01/25/17 08:51 10 MG Morphine Sulfate 1 mg 1X ONCE 01/25/17 11:00 01/25/17 11:01 Ondansetron HCl (Zofran) 4 mg 1X ONCE 01/25/17 07:45 01/25/17 07:46 DC 01/25/17 07:51 4 MG Sodium Chloride 1,000 ml @ 1,000 mls/hr 1X ONCE 01/25/17 07:45 01/25/17 08:44 DC 01/25/17 07:52 1,000 MLS/HR Allergies Allergies Allergies Coded Allergies Type Severity Reaction Last Updated Verified Penicillins Adverse Reaction Mild "DOESN'T WORK" 12/09/16 Yes Physical Exam Physical Exam Constitutional: Well developed, well nourished, no acute distress, non-toxic appearance. [] HENT: Normocephalic, atraumatic, bilateral external ears normal, oropharynx moist, no oral exudates, nose normal. [] Eyes: PERRLA, EOMI, conjunctiva normal, no discharge. [] Neck: Normal range of motion, no tenderness, supple, no stridor. [] Cardiovascular:Heart rate regular rhythm, no murmur [] Lungs & Thorax: Bilateral breath sounds clear to auscultation [] Abdomen: Bowel sounds normal, soft, no tenderness, no masses, no pulsatile masses. [] Skin: Warm, dry, no erythema, no rash. [] Back: No tenderness, no CVA tenderness. [] Extremities: No tenderness, no cyanosis, no clubbing, ROM intact, no edema. [] Neurologic: Alert and oriented X 3, normal motor function, normal sensory function, no focal deficits noted. [] Psychologic: Affect normal, judgement normal, mood normal. [] Current Patient Data Vital Signs Vital Signs Date Time Temp Pulse Resp B/P (MAP) Pulse Ox O2 Delivery O2 Flow Rate FiO2 01/25/17 09:35 18 99 Room Air 01/25/17 09:27 82 144/97 (113) 01/25/17 07:25 97.5 97.5 Lab Values Laboratory Tests Test 01/25/17 07:30 01/25/17 09:30 White Blood Count 7.3 x10^3/uL (4.0-11.0) Red Blood Count 5.05 x10^6/uL (4.30-5.70) Hemoglobin 13.7 g/dL (13.0-17.5) Hematocrit 42.6 % (39.0-53.0) Mean Corpuscular Volume 84 fL (79-100) Mean Corpuscular Hemoglobin 27 pg (25-35) Mean Corpuscular Hemoglobin Concent 32 g/dL (31-37) Red Cell Distribution Width 14.0 % (11.5-14.5) Platelet Count 178 x10^3/uL (140-400) Neutrophils (%) (Auto) 49 % (31-73) Lymphocytes (%) (Auto) 41 % (24-48) Monocytes (%) (Auto) 7 % (0-9) Eosinophils (%) (Auto) 2 % (0-3) Basophils (%) (Auto) 1 % (0-3) Neutrophils # (Auto) 3.5 x10^3uL (1.8-7.7) Lymphocytes # (Auto) 3.0 x10^3/uL (1.0-4.8) Monocytes # (Auto) 0.5 x10^3/uL (0.0-1.1) Eosinophils # (Auto) 0.1 x10^3/uL (0.0-0.7) Basophils # (Auto) 0.1 x10^3/uL (0.0-0.2) Sodium Level 142 mmol/L (136-145) Potassium Level 3.8 mmol/L (3.5-5.1) Chloride Level 103 mmol/L (98-107) Carbon Dioxide Level 25 mmol/L (21-32) Anion Gap 14 (6-14) Blood Urea Nitrogen 15 mg/dL (8-26) Creatinine 1.1 mg/dL (0.7-1.3) Estimated GFR (Cockcroft-Gault) 96.4 BUN/Creatinine Ratio 14 (6-20) Glucose Level 98 mg/dL (70-99) Calcium Level 9.9 mg/dL (8.5-10.1) Total Bilirubin 0.7 mg/dL (0.2-1.0) Aspartate Amino Transferase (AST) 17 U/L (15-37) Alanine Aminotransferase (ALT) 21 U/L (16-63) Alkaline Phosphatase 56 U/L (46-116) Total Protein 7.4 g/dL (6.4-8.2) Albumin 4.3 g/dL (3.4-5.0) Albumin/Globulin Ratio 1.4 (1.0-1.7) Lipase 133 U/L (73-393) Ethyl Alcohol Level < 10 mg/dL (0-10) Urine Collection Type Unknown Urine Color Yellow Urine Clarity Clear Urine pH 7.0 Urine Specific [place] 1.025 Urine Protein Negative mg/dL (NEG-TRACE) Urine Glucose (UA) Negative mg/dL (NEG) Urine Ketones (Stick) Negative mg/dL (NEG) Urine Blood Negative (NEG) Urine Nitrite Negative (NEG) Urine Bilirubin Negative (NEG) Urine Urobilinogen Dipstick 0.2 mg/dL (0.2 mg/dL) Urine Leukocyte Esterase Negative (NEG) Urine RBC 1-2 /HPF (0-2) Urine WBC 1-4 /HPF (0-4) Urine Squamous Epithelial Cells Few /LPF Urine Bacteria 0 /HPF (0-FEW) Urine Mucus Marked /LPF Urine Opiates Screen Neg (NEG) Urine Methadone Screen Neg (NEG) Urine Barbiturates Neg (NEG) Urine Phencyclidine Screen Neg (NEG) Urine Amphetamine/Methamphetamine Neg (NEG) Urine Benzodiazepines Screen Pos (NEG) Urine Cocaine Screen Neg (NEG) Urine Cannabinoids Screen Pos (NEG) Urine Ethyl Alcohol Neg (NEG) Laboratory Tests 01/25/17 07:30 Laboratory Tests 01/25/17 07:30 EKG EKG [] Radiology/Procedures Radiology/Procedures [] Course & Med Decision Making Course & Med Decision Making Pertinent Labs and Imaging studies reviewed. (See chart for details) Patient is in the ED with complaints of left upper quadrant abdominal pain nausea and vomiting. Has history of alcoholic gastritis. He is well known to this ED for his symptoms. He states the last time he had to drink was one and a half months ago. Patient is screaming cursing calling people names in the ED. He is very had to work with. We initially gave him fentanyl Haldol famotidine and Zofran with no relief of his symptoms. We gave him morphine and ketamine which helped tremendously with his symptoms. His labs are negative. CT of the abdomen and pelvic is negative for any acute findings. His urine shows is using marijuana which he was advised to stop using because it increases episodes of nausea and vomiting We provided him a GI doctor and made sure we highlighted his paperwork to make sure he sees the contact information. Discharged with Zofran, famotidine, and dicyclomine. Dragon Disclaimer Dragon Disclaimer This electronic medical record was generated, in whole or in part, using a voice recognition dictation system. Departure Departure Impression: Primary Impression: Abdominal pain Additional Impressions: Alcoholic gastritis Marijuana abuse Disposition: HOME, SELF-CARE Condition: STABLE Referrals: NO PCP (PCP) LISA HARVEY MD Call his office and follow up as soon as you can Patient Instructions: Abdominal Pain, Alcoholic Gastritis-Brief, Marijuana Abuse and Chemical Dependency Additional Instructions: You were seen for chronic abdominal pain due to alcoholic gastritis. We highly recommend you follow-up with the touch up carver provided. His name is Dr. Harvey 's contact information is highlighted in this paperwork. Please stop using marijuana this drug is know to increase episodes of nausea and vomiting. Scripts Dicyclomine Hcl (DICYCLOMINE HCL) 20 Mg Tablet 1 TAB PO TID, #30 TAB 1 Refill Prov: KG BRIGGS APRN 01/25/17 Famotidine (FAMOTIDINE) 20 Mg Tablet 20 MG PO DAILY, #30 TAB Prov: GK BRIGGS APRN 01/25/17 Ondansetron (ZOFRAN ODT) 4 Mg Tab.rapdis 1 TAB SL Q8HRS, #15 TAB Prov: GK BRIGGS APRN 01/25/17 Problem Qualifiers Primary Impression: Abdominal pain Abdominal location: left upper quadrant Qualified Codes: R10.12 - Left upper quadrant pain Additional Impressions: Alcoholic gastritis Chronicity: chronic Gastritis bleeding: without bleeding Qualified Codes: K29.20 - Alcoholic gastritis without bleeding KG BRIGGS APRN January 25, 2017 07:45
[2017-01-25 07:52] LABS: BASO # 0.1 x10^3/uL (0.0-0.2); BASO % 1 % (0-3); EOS % 2 % (0-3); HEMATOCRIT 42.6 % (39.0-53.0); HEMOGLOBIN 13.7 g/dL (13.0-17.5); LYMPH % 41 % (24-48); MEAN CORPUSCULAR HEMOGLOBIN 27 pg (25-35); MEAN CORPUSCULAR HGB CONC 32 g/dL (31-37); MEAN CORPUSCULAR VOLUME 84 fL (79-100); MONO % 7 % (0-9); NEUT % 49 % (31-73); PLATELET COUNT 178 x10^3/uL (140-400); RED BLOOD COUNT 5.05 x10^6/uL (4.30-5.70); WHITE BLOOD COUNT 7.3 x10^3/uL (4.0-11.0)
[2017-01-25] MEDS: fentaNYL PF VIAL 100 MCG/2 ML VIAL IV ONE ×2 (07:52→08:00)
[2017-01-25 08:00] LABS: CALCIUM 9.9 mg/dL (8.5-10.1); CREATININE 1.1 mg/dL (0.7-1.3); GFR 96.4; POTASSIUM 3.8 mmol/L (3.5-5.1)
[2017-01-25 08:06] LABS: ALBUMIN 4.3 g/dL (3.4-5.0); ALBUMIN/GLOBULIN RATIO 1.4 (1.0-1.7); TOTAL BILIRUBIN 0.7 mg/dL (0.2-1.0); TOTAL PROTEIN 7.4 g/dL (6.4-8.2)
[2017-01-25] MEDS ORDERED: HALOPERIDOL LACTATE 5 MG/ML VIAL. IVP ONE (08:15)
[2017-01-25] MEDS ORDERED: KETAMINE HCL 500 MG/10 ML VIAL. IV ONE (08:45)
[2017-01-25] MEDS ORDERED: IOHEXOL 300 MG/ML 75 ML VIAL IV ONE (09:15)
[2017-01-25] MEDS ORDERED: CONTRAST GIVEN MC PRN (09:15)
[2017-01-25 09:42] LABS: BILIRUBIN,URINE NEGATIVE (NEG); GLUCOSE,URINE NEGATIVE (NEG); NITRITE,URINE NEGATIVE (NEG); PROTEIN,URINE NEGATIVE (NEG-TRACE); UROBILINOGEN,URINE 0.2 mg/dL (0.2 mg/dL)
[2017-01-25] MEDS ORDERED: MORPHINE SULFATE 2 MG/ML DISP.SYRIN. IV ONE ×2 (09:45→11:00)
[2017-01-25 09:48] LABS: BARBITURATES NEG (NEG); BENZODIAZEPINES POS (NEG); CANNABINOIDS POS (NEG); COCAINE NEG (NEG); METHADONE NEG (NEG); OPIATES NEG (NEG); PHENCYCLIDINE NEG (NEG)
[2017-01-25 10:04] LABS: BACTERIA,URINE 0 /HPF (0-FEW); SQUAMOUS EPITHELIAL CELL,UR FEW /LPF
--- NOTE | 2017-01-25 10:45 | RAD ---
Indication: Abdominal pain. Axial imaging through the abdomen and pelvis was performed after the administration of intravenous contrast. No prior studies are available for comparison. The lung bases are clear. The liver and gallbladder are unremarkable. The pancreas and spleen are unremarkable. No adrenal mass is detected. The small and large bowel loops are normal caliber. The appendix is unremarkable. No ascites is detected. Bladder is unremarkable. Impression: Unremarkable CT of the abdomen and pelvis with contrast. No acute abnormality is detected. MTDD
[2017-01-25] MEDS ORDERED: FAMO20TA5 PO (11:01)
[2017-01-25] MEDS ORDERED: ONDA4TAB10 SL (11:01)
[2017-01-25] MEDS ORDERED: DICY20TA3 PO (11:01)
[2017-01-25 11:10] VITALS: BP 139/83
== END 2017-01-25 11:20 | disposition home or self-care (01) ==
LOC: ER 07:12
DX: K29.20 Alcoholic gastritis without bleeding (principal); F12.10 Cannabis abuse, uncomplicated; F10.10 Alcohol abuse, uncomplicated; Z88.1 Allergy status to other antibiotic agents; Y90.9 Presence of alcohol in blood, level not specified
CPT/HCPCS: 36415; 74177; 80053; 80305; 80320; 81001; 83690; 85027; 96361; 96374; 96375; 96376; 99285; J1630; J2270; J2405; J3010; J3490; J7030; Q9967; S0028; G0480; G0481

== ENCOUNTER 2017-03-15 20:04 | Emergency (ER) | payer SELFPAY ==
[~2017-03-15] VITALS: Ht 180.3 cm; Wt 68.0 kg
[~2017-03-15 20:04] MED LIST changes: +DICY20TA3 PO; +FAMO20TA5 PO; +ONDA4TAB10 SL; -SUCR1TAB29 PO; +SUCR1TAB35 PO
[2017-03-15 21:22] LABS: BASO # 0.1 x10^3/uL (0.0-0.2); BASO % 1 % (0-3); EOS % 1 % (0-3); HEMATOCRIT 43.2 % (39.0-53.0); HEMOGLOBIN 14.4 g/dL (13.0-17.5); LYMPH # 3.4 x10^3/uL (1.0-4.8); LYMPH % 34 % (24-48); MEAN CORPUSCULAR HEMOGLOBIN 28 pg (25-35); MEAN CORPUSCULAR HGB CONC 33 g/dL (31-37); MEAN CORPUSCULAR VOLUME 84 fL (79-100); MONO % 9 % (0-9); NEUT % 56 % (31-73); PLATELET COUNT 227 x10^3/uL (140-400); RED BLOOD COUNT 5.17 x10^6/uL (4.30-5.70); RED CELL DISTRIBUTION WIDTH 13.7 % (11.5-14.5); WHITE BLOOD COUNT 9.9 x10^3/uL (4.0-11.0)
[2017-03-15 21:34] LABS: CALCIUM 9.8 mg/dL (8.5-10.1); CREATININE 1.1 mg/dL (0.7-1.3); GFR 96.4; POTASSIUM 3.1 mmol/L (3.5-5.1)
[2017-03-15 21:40] LABS: ALBUMIN 4.6 g/dL (3.4-5.0); DIRECT BILIRUBIN 0.2 mg/dL (0.0-0.2); TOTAL BILIRUBIN 1.7 mg/dL (0.2-1.0); TOTAL PROTEIN 8.2 g/dL (6.4-8.2)
[2017-03-15] MEDS: fentaNYL PF VIAL 100 MCG/2 ML VIAL IV PRN ×3 (21:54→23:36)
[2017-03-15] MEDS ORDERED: IV NORMAL SALINE 1000ML BAG 1,000 ML IV ONE ×2 (22:00→23:00)
[2017-03-15] MEDS ORDERED: ONDANSETRON PF 4 MG/2 ML VIAL. IV ONE (22:00)
[2017-03-15] MEDS ORDERED: LIDO:MAALOX:DONNATAL 1:1:1 15 ML SINGLE DOSE SWSW ONE (22:00)
[2017-03-15] MEDS ORDERED: FAMOTIDINE 20 MG/2 ML VIAL IVP ONE (22:00)
[2017-03-15] MEDS ORDERED: CONTRAST GIVEN MC PRN (23:00)
[2017-03-15] MEDS: POTASSIUM CHLORIDE 10MEQ 100 ML IV SCH (23:28)
[2017-03-15] MEDS ORDERED: IOHEXOL 300 MG/ML 75 ML VIAL IV ONE ×2 (23:30→23:45)
[2017-03-15] MEDS ORDERED: MORPHINE SULFATE 2 MG/ML DISP.SYRIN. ONE (23:32)
[2017-03-15] MEDS ORDERED: MORPHINE SULFATE 2 MG/ML DISP.SYRIN. IV PRN (23:45)
[2017-03-15] MEDS ORDERED: IOHEXOL 240 MG/ML 50ML VIAL. PO ONE (23:45)
[2017-03-16] MEDS: POTASSIUM CHLORIDE 10MEQ 100 ML IV SCH (00:27)
--- NOTE | 2017-03-16 00:28 | PHYS DOC ---
Past Medical History Past Medical History: Other Additional Past Medical Histor: abd pain, etoh abuse Past Surgical History: No Surgical History Alcohol Use: Occasionally Drug Use: Marijuana Adult General Chief Complaint Chief Complaint: ABDOMINAL PAIN HPI HPI 18-year-old male presenting to the emergency department with epigastric abdominal pain. Started approximately an hour ago. He has a chronic history of chronic abdominal pain. He describes the pain as a burning sensation that is moderate, nonradiating and without alleviating or exacerbating factors. He denies fevers chills but has had nausea with small amounts of vomiting. He denies any blood in his vomit. He reports it is nonbilious. He denies fevers or chills. He denies any other symptoms. Review of systems is negative for chest pain shortness of breath fevers chills. Positive for nausea with small episodes of vomiting. All other review of systems is negative unless otherwise noted in history of present illness. ED course: 18-year-old male presenting to the emergency department today with epigastric abdominal pain. Initial triage vital signs patient is afebrile with a normal heart rate. Blood pressure mildly elevated. Pertinent physical exam findings show soft nontender abdomen.Soft nontender abdomen without rebound tenderness or guarding present. Negative McBurneys point. Negative Benson sign. No ecchymosis present. Labs obtained along with CT of the abdomen pelvis. Reexamination of the abdomen continues to show a nontender abdomen. CT abdomen pelvis negative. Labs showed low potassium. IV potassium given in the emergency department. Patient was subsequent discharged home with Zofran and potassium to follow up with primary care doctor in 2-3 days. Review of Systems Review of Systems SEE ABOVE. Current Medications Current Medications Current Medications Medications (Trade) Dose Ordered Sig/Jenna Start Time Stop Time Status Last Admin Dose Admin Famotidine (Pepcid) 20 mg 1X ONCE 03/15/17 22:00 03/15/17 22:01 DC 03/15/17 21:53 20 MG Fentanyl Citrate (Fentanyl 2ml Vial) 25 mcg 1X PRN PRN 03/15/17 21:45 03/15/17 23:36 DC 03/15/17 23:36 25 MCG Info (Do NOT chart on this entry -- for MONITORING) 1 each PRN DAILY PRN 03/15/17 23:00 03/17/17 22:59 Iohexol (Omnipaque 240 Mg/ml) 50 ml 1X ONCE 03/15/17 23:45 03/15/17 23:46 DC 03/16/17 00:47 50 ML Iohexol (Omnipaque 300 Mg/ml) 75 ml 1X ONCE 03/15/17 23:45 03/15/17 23:46 DC Morphine Sulfate 2 mg STK-MED ONCE 03/15/17 23:32 03/15/17 23:33 DC Multi-Ingredient Mouthwash/Gargle (Gi Cocktail Single Dose) 15 ml 1X ONCE 03/15/17 22:00 03/15/17 22:01 DC 03/15/17 21:53 15 ML Ondansetron HCl (Zofran) 4 mg 1X ONCE 03/15/17 22:00 03/15/17 22:01 DC 03/15/17 21:53 4 MG Potassium Chloride 100 ml @ 100 mls/hr Q1H 03/15/17 23:00 03/16/17 00:59 DC 03/16/17 00:27 100 MLS/HR Sodium Chloride 1,000 ml @ 100 mls/hr 1X ONCE 03/15/17 23:00 03/16/17 08:59 03/15/17 23:37 100 MLS/HR Allergies Allergies Allergies Coded Allergies Type Severity Reaction Last Updated Verified Penicillins Adverse Reaction Mild "DOESN'T WORK" 12/09/16 Yes Physical Exam Physical Exam Constitutional: Well developed, well nourished, no acute distress, non-toxic appearance. [] HENT: Normocephalic, atraumatic, bilateral external ears normal, oropharynx moist, no oral exudates, nose normal. [] Eyes: PERRLA, EOMI, conjunctiva normal, no discharge. [] Neck: Normal range of motion, no tenderness, supple, no stridor. [] Cardiovascular:Heart rate regular rhythm, no murmur [] Lungs & Thorax: Bilateral breath sounds clear to auscultation [] Abdomen: Bowel sounds normal, soft, no tenderness, no masses, no pulsatile masses. [] SEE ABOVE Skin: Warm, dry, no erythema, no rash. [] Back: No tenderness, no CVA tenderness. [] Extremities: No tenderness, no cyanosis, no clubbing, ROM intact, no edema. [] Neurologic: Alert and oriented X 3, normal motor function, normal sensory function, no focal deficits noted. [] Psychologic: Affect normal, judgement normal, mood normal. [] Current Patient Data Vital Signs Vital Signs Date Time Temp Pulse Resp B/P (MAP) Pulse Ox O2 Delivery O2 Flow Rate FiO2 03/16/17 00:34 72 18 124/59 (80) 97 Room Air 03/15/17 20:28 97.3 97.3 Lab Values Laboratory Tests Test 03/15/17 20:35 White Blood Count 9.9 x10^3/uL (4.0-11.0) Red Blood Count 5.17 x10^6/uL (4.30-5.70) Hemoglobin 14.4 g/dL (13.0-17.5) Hematocrit 43.2 % (39.0-53.0) Mean Corpuscular Volume 84 fL (79-100) Mean Corpuscular Hemoglobin 28 pg (25-35) Mean Corpuscular Hemoglobin Concent 33 g/dL (31-37) Red Cell Distribution Width 13.7 % (11.5-14.5) Platelet Count 227 x10^3/uL (140-400) Neutrophils (%) (Auto) 56 % (31-73) Lymphocytes (%) (Auto) 34 % (24-48) Monocytes (%) (Auto) 9 % (0-9) Eosinophils (%) (Auto) 1 % (0-3) Basophils (%) (Auto) 1 % (0-3) Neutrophils # (Auto) 5.5 x10^3uL (1.8-7.7) Lymphocytes # (Auto) 3.4 x10^3/uL (1.0-4.8) Monocytes # (Auto) 0.9 x10^3/uL (0.0-1.1) Eosinophils # (Auto) 0.1 x10^3/uL (0.0-0.7) Basophils # (Auto) 0.1 x10^3/uL (0.0-0.2) Sodium Level 142 mmol/L (136-145) Potassium Level 3.1 mmol/L (3.5-5.1) L Chloride Level 100 mmol/L (98-107) Carbon Dioxide Level 28 mmol/L (21-32) Anion Gap 14 (6-14) Blood Urea Nitrogen 17 mg/dL (8-26) Creatinine 1.1 mg/dL (0.7-1.3) Estimated GFR (Cockcroft-Gault) 96.4 Glucose Level 94 mg/dL (70-99) Calcium Level 9.8 mg/dL (8.5-10.1) Total Bilirubin 1.7 mg/dL (0.2-1.0) H Direct Bilirubin 0.2 mg/dL (0.0-0.2) Aspartate Amino Transferase (AST) 17 U/L (15-37) Alanine Aminotransferase (ALT) 25 U/L (16-63) Alkaline Phosphatase 63 U/L (46-116) Total Protein 8.2 g/dL (6.4-8.2) Albumin 4.6 g/dL (3.4-5.0) Lipase 133 U/L (73-393) Laboratory Tests 03/15/17 20:35 Laboratory Tests 03/15/17 20:35 EKG EKG [] Radiology/Procedures Radiology/Procedures [] Course & Med Decision Making Course & Med Decision Making Pertinent Labs and Imaging studies reviewed. (See chart for details) [] Dragon Disclaimer Dragon Disclaimer This electronic medical record was generated, in whole or in part, using a voice recognition dictation system. Departure Departure Impression: Primary Impression: Abdominal pain Additional Impression: Nausea and vomiting Disposition: 01 HOME, SELF-CARE Condition: STABLE Referrals: NO PCP (PCP) NIR VENTURA MD Patient Instructions: Abdominal Pain Additional Instructions: Thank you for allowing us to participate in your care today. Followup with your primary care physician in 3 days if your symptoms do not improve. Call your Primary Doctor tomorrow and inform them of your visit today. If you do not have a primary care provider you can ask for a list of our primary care providers. Return to the emergency department you have any new or concerning findings. This should be evaluated by the primary care physician and any necessary consulting services for continued management within a few days after discharge. Return to emergency room if you have any new or concerning symptoms including but not limited to fever, chills, nausea, vomiting, intractable pain, any new rashes, chest pain, shortness of air, uncontrolled bleeding, difficulty breathing, and/or vision loss. Scripts Potassium Chloride (POTASSIUM CHLORIDE) 10 Meq Capsule.er 10 MEQ PO DAILY for 5 Days, #5 TAB.SR Prov: MEGAN RODRIGUEZ MD 03/16/17 Ondansetron (ZOFRAN ODT) 4 Mg Tab.rapdis 1 TAB SL PRN Q8HRS Y for NAUSEA, #6 TAB Prov: MEGAN RODRIGUEZ MD 03/16/17 Famotidine (PEPCID) 40 Mg Tablet 40 MG PO HS, #14 TAB 0 Refills Prov: MEGAN RODRIGUEZ MD 03/16/17 Problem Qualifiers MEGAN RODRIGUEZ MD Mar 16, 2017 00:28
[2017-03-16 00:34] VITALS: BP 124/59
--- NOTE | 2017-03-16 01:54 | RAD ---
EXAM: Abdomen and pelvis CT with intravenous contrast. HISTORY: 26-year-old male with abdominal pain, dizziness and vomiting.. TECHNIQUE: Computed tomographic images of the abdomen and pelvis were obtained following the administration of 75 cc of Omni 300 intravenous contrast. Oral contrast was also administered, although subsequently vomited. Multiplanar reformatting was performed. PQRS compliance statement: One or more of the following individualized dose reduction techniques were utilized for this examination: 1. Automated exposure control 2. Adjustment of the mA and/or kV according to patient size 3. Use of iterative reconstruction technique COMPARISON: January 2017. FINDINGS: The lung bases demonstrate no acute finding. The liver, spleen, gallbladder, pancreas, adrenal glands and bilateral kidneys demonstrate no focal abnormality. The GI tract demonstrates no dilated bowel loops to suggest obstruction. The appendix was previously seen in the retrocecal location, which is partially visualized on today's exam, appearing normal in caliber without adjacent soft tissue stranding. Evaluation of the bowel loops is limited given lack of intra-abdominal fat. The urinary bladder is grossly unremarkable. No intra-abdominal or pelvic free fluid, free air or significant lymphadenopathy is seen. Aorta is normal in caliber. Overlying soft tissues and visualized osseous structures demonstrate no acute interval change. IMPRESSION: No acute intra-abdominal or pelvic process seen. Appendix appears normal in caliber in the retrocecal location. No evidence of obstruction. Otherwise, bowel loops are somewhat difficult to visualize given lack of intra-abdominal fat. Electronically signed by: Cindy Mares MD (03/16/2017 1:51 AM)
[2017-03-16 02:01] LABS: BILIRUBIN,URINE NEGATIVE (NEG); GLUCOSE,URINE NEGATIVE (NEG); NITRITE,URINE NEGATIVE (NEG); PROTEIN,URINE 30 mg/dL (NEG-TRACE)
[2017-03-16] MEDS ORDERED: ONDA4TAB10 SL (02:07)
[2017-03-16] MEDS ORDERED: POTASSIUM CHLO10 MEQ PO (02:07)
[2017-03-16] MEDS ORDERED: FAMO40TA57 PO (02:07)
[2017-03-16 02:25] LABS: BACTERIA,URINE 0 /HPF (0-FEW); RBC,URINE OCC /HPF (0-2); SQUAMOUS EPITHELIAL CELL,UR OCC /LPF
== END 2017-03-16 02:18 | disposition home or self-care (01) ==
LOC: ER 20:04
DX: R10.13 Epigastric pain (principal); R11.2 Nausea with vomiting, unspecified; F12.10 Cannabis abuse, uncomplicated; G89.29 Other chronic pain; R03.0 Elevated blood-pressure reading, without diagnosis of hypertension; Z88.0 Allergy status to penicillin
CPT/HCPCS: 36415; 74177; 80048; 80076; 81001; 83690; 85027; 96361; 96374; 96375; 96376; 99285; J2270; J2405; J3010; J3480; J7030; Q9966; Q9967; S0028

== ENCOUNTER 2019-05-14 03:56 | Emergency (ER) | payer SELFPAY ==
[~2019-05-14] VITALS: Ht 177.8 cm; Wt 68.0 kg
[~2019-05-14 03:56] MED LIST changes: +FAMO40TA57 PO; -PANT40TA3 PO; +PANT40TA77 PO; +POTA10TA12 PO
[2019-05-14 04:04] VITALS: BP 138/87
[2019-05-14] MEDS ORDERED: CYCL5TAB PO (04:29)
--- NOTE | 2019-05-14 04:31 | PHYS DOC ---
Past Medical History Past Medical History: Alcoholism, Other Additional Past Medical Histor: abd pain, etoh abuse Past Surgical History: No Surgical History Alcohol Use: Occasionally Drug Use: Marijuana Adult General Chief Complaint Chief Complaint: BACK PAIN - NO INJURY HPI HPI Patient is a 28 year old m p/w low back pain onset a few hours ago played bball today lifted legs yesterday does not recall a significant pop no b/b incontinence no numbness/tingling/wekness pain radiates up right back to neck/shoulder Patient is worse with movement Review of Systems Review of Systems Constitutional: Denies fever or chills [] Eyes: Denies change in visual acuity, redness, or eye pain [] HENT: Denies nasal congestion or sore throat [] Respiratory: Denies cough or shortness of breath [] Neurologic: Denies headache, focal weakness or sensory changes [] Endocrine: Denies polyuria or polydipsia [] All other systems were reviewed and found to be within normal limits, except as documented in this note. Current Medications Current Medications Current Medications Medications (Trade) Dose Ordered Sig/Jenna Start Time Stop Time Status Last Admin Dose Admin Ketorolac Tromethamine (Toradol 30mg Vial) 30 mg 1X ONCE 05/14/19 04:30 05/14/19 04:31 UNV Lorazepam (Ativan Inj) 2 mg 1X ONCE 05/14/19 04:30 05/14/19 04:31 UNV Allergies Allergies Allergies Coded Allergies Type Severity Reaction Last Updated Verified Penicillins Adverse Reaction Mild "DOESN'T WORK" 12/09/16 Yes Physical Exam Physical Exam Constitutional: Well developed, well nourished, mild to moderate distress HENT: Normocephalic, atraumatic, bilateral external ears normal, oropharynx moist, no oral exudates, nose normal. [] Eyes: PERRLA, EOMI, conjunctiva normal, no discharge. [] Neck: Normal range of motion, no tenderness, supple, no stridor. [] Pulmonary: Normal respiratory effort no increased work of breathing no obvious chest wall trauma Abdomen: Bowel sounds normal, soft, no tenderness, no masses, no pulsatile masses. [] back palpable spasm on the right no focal midline ttp Extremities: No tenderness, no cyanosis, no clubbing, ROM intact, no edema. [] Neurologic: Alert and oriented X 3, normal motor function, normal sensory function, no focal deficits noted. [] Psychologic: Affect normal, judgement normal, mood normal. [] Current Patient Data Vital Signs Vital Signs Date Time Temp Pulse Resp B/P (MAP) Pulse Ox O2 Delivery O2 Flow Rate FiO2 05/14/19 03:59 97.8 87 18 138/87 (104) 100 Room Air 97.8 EKG EKG [] Radiology/Procedures Radiology/Procedures [] Course & Med Decision Making Course & Med Decision Making Pertinent Labs and Imaging studies reviewed. (See chart for details) []Likely musculoskeletal type low back pain. Probably muscle spasm palpated on examination treated as such return precautions discussed patient voiced understanding no signs of cauda equina Dragon Disclaimer Dragon Disclaimer This electronic medical record was generated, in whole or in part, using a voice recognition dictation system. Departure Departure Impression: Primary Impression: Low back pain Disposition: 01 HOME, SELF-CARE Condition: STABLE Patient Instructions: Back Pain, Adult, [id number] Scripts Cyclobenzaprine Hcl (CYCLOBENZAPRINE HCL) 5 Mg Tablet 5 MG PO PRN TID PRN for PAIN, #15 TAB Prov: VANDANA HERNANDEZ MD 05/14/19 VANDANA HERNANDEZ MD May 14, 2019 04:31
[2019-05-14] MEDS ORDERED: KETOROLAC 30 MG/ML VIAL. IM ONE (04:45)
== END 2019-05-14 05:15 | disposition home or self-care (01) ==
LOC: ER 03:56
DX: M54.5 Low back pain (principal); M54.2 Cervicalgia; F10.10 Alcohol abuse, uncomplicated; Y90.9 Presence of alcohol in blood, level not specified
CPT/HCPCS: 96372; 99284; J1885; J2060

== ENCOUNTER 2020-01-15 02:30 | Emergency (ER) | payer SELFPAY ==
[~2020-01-15] VITALS: Ht 180.3 cm; Wt 81.0 kg
[~2020-01-15 02:30] MED LIST changes: +CYCL5TAB PO
[2020-01-15] MEDS ORDERED: IV NORMAL SALINE 1000ML BAG 1,000 ML IV SCH (03:00)
[2020-01-15] MEDS: fentaNYL PF VIAL 100 MCG/2 ML VIAL IV PRN ×3 (03:09→04:13)
[2020-01-15 03:12] LABS: BASO # 0.1 x10^3/uL (0.0-0.2); BASO % 0 % (0-3); EOS # 0.1 x10^3/uL (0.0-0.7); EOS % 0 % (0-3); HEMATOCRIT 43.5 % (39.0-53.0); HEMOGLOBIN 14.4 g/dL (13.0-17.5); LYMPH % 14 % (24-48); MEAN CORPUSCULAR HEMOGLOBIN 28 pg (25-35); MEAN CORPUSCULAR HGB CONC 33 g/dL (31-37); MEAN CORPUSCULAR VOLUME 83 fL (79-100); MONO # 0.9 x10^3/uL (0.0-1.1); MONO % 6 % (0-9); NEUT # 11.6 x10^3/uL (1.8-7.7); NEUT % 79 % (31-73); PLATELET COUNT 213 x10^3/uL (140-400); RED BLOOD COUNT 5.24 x10^6/uL (4.30-5.70); RED CELL DISTRIBUTION WIDTH 14.1 % (11.5-14.5); WHITE BLOOD COUNT 14.7 x10^3/uL (4.0-11.0)
[2020-01-15 03:29] LABS: CALCIUM 9.9 mg/dL (8.5-10.1); CREATININE 1.1 mg/dL (0.7-1.3); GFR 94.5; POTASSIUM 3.5 mmol/L (3.5-5.1)
[2020-01-15] MEDS ORDERED: METOCLOPRAMIDE HCL 10 MG/2 ML VIAL. IVP ONE (03:30)
[2020-01-15] MEDS ORDERED: diphenhydrAMINE 50 MG/ML VIAL IVP ONE (03:30)
[2020-01-15 03:37] LABS: ALBUMIN 4.9 g/dL (3.4-5.0); ALBUMIN/GLOBULIN RATIO 1.5 (1.0-1.7); TOTAL BILIRUBIN 0.9 mg/dL (0.2-1.0); TOTAL PROTEIN 8.1 g/dL (6.4-8.2)
[2020-01-15] MEDS ORDERED: CONTRAST GIVEN. MC PRN (03:45)
[2020-01-15] MEDS ORDERED: IOHEXOL 300 MG/ML 100ML VIAL. IV ONE (04:00)
--- NOTE | 2020-01-15 04:29 | RAD ---
Study: CT abdomen/pelvis with intravenous contrast Indication: Left lower quadrant abdominal pain. Comparison: 03/15/2017 Technique: Helical CT imaging performed of the abdomen and pelvis after the intravenous administration of 75 cc Omnipaque 300 contrast. Sagittal and coronal reformats were obtained. One or more of the following individualized dose reduction techniques were utilized for this examination: 1. Automated exposure control 2. Adjustment of the mA and/or kV according to patient size 3. Use of iterative reconstruction technique. Findings: The study is degraded by motion artifact. Chest: No acute abnormality. Liver: Unchanged. Gallbladder/Biliary Tree: Mild gallbladder distention without CT findings to suggest acute cholecystitis. Mild biliary tree prominence at the lorraine hepatis but the common duct tapers normally at the pancreatic head. Pancreas: No peripancreatic inflammatory changes definitively seen. Spleen: Within normal limits. Adrenal Glands: Unremarkable. Kidneys/Ureters/Bladder: No newly seen renal parenchymal abnormality. No nephrolithiasis or hydronephrosis. Unremarkable urinary bladder. Reproductive Organs: Unchanged. Colon: Segments of the colonic wall are mildly thickened but this could be related to incomplete distention. The appearance is very similar to the 2017 comparison. Appendix: The appendix is normal such as seen on image 44 series 3. Small Bowel: No pathologically dilated small bowel loops to suggest obstruction. Discrimination of scattered individual bowel loops is made difficult by a paucity of mesenteric fat. Stomach: Poorly evaluated due to underdistention. Vasculature: Unremarkable. Lymph Nodes: Within normal limits. Peritoneum and Body Wall: No free abdominopelvic fluid is well seen. No free air. Bones: Unusual configuration of the right hip joint favored positional as the patient's right leg is deviated outward. No acute fracture is identified. Broad levocurvature of the visualized thoracolumbar spine. Miscellaneous: None. Impression: 1. Taking into consideration motion degradation, no acute abnormality is seen throughout the abdomen or pelvis. Several segments of colon exhibit mild wall thickening but this is favored secondary to underdistention and the overall appearance of the bowel is very similar to the 2017 comparison. 2. Mild distention of the gallbladder without CT findings to suggest acute cholecystitis. Electronically signed by: INDIRA ARNETT MD (01/15/2020 4:26 AM) [id number]
[2020-01-15] MEDS ORDERED: TRAM50TA PO (04:38)
[2020-01-15] MEDS ORDERED: METR500T PO (04:38)
[2020-01-15] MEDS ORDERED: ONDA4TAB12 PO (04:38)
--- NOTE | 2020-01-15 04:39 | PHYS DOC ---
Past Medical History Past Medical History: Alcoholism, Other Additional Past Medical Histor: abd pain, etoh abuse Past Surgical History: No Surgical History Smoking Status: Never Smoker Alcohol Use: Occasionally Drug Use: Marijuana General Adult EDM: Chief Complaint: ABDOMINAL PAIN HPI: HPI: Patient is a 29 year old male who presents with complaint of left lower abdominal pain that started last night at about 11:30 PM. Patient rates his pain to be a 10 out of 10. He states that he is feeling very nauseated and has had vomiting. He denies any diarrhea. Patient states that nothing is making the pain better. He denies chest pain or shortness breath. He denies any fever.[] Review of Systems: Review of Systems: Constitutional: Denies fever or chills. [] Respiratory: Denies cough or shortness of breath. [] Cardiovascular: Denies chest pain or edema. [] GI: Complains of abdominal pain with nausea and vomiting. Denies diarrhea. [] Musculoskeletal: Denies back pain or joint pain. [] Integument: Denies rash. [] Neurologic: Denies headache, focal weakness or sensory changes. [] Heart Score: Risk Factors: Risk Factors: DM, Current or recent (<one month) smoker, HTN, HLP, family history of CAD, obesity. Risk Scores: Score 0 - 3: 2.5% MACE over next 6 weeks - Discharge Home Score 4 - 6: 20.3% MACE over next 6 weeks - Admit for Clinical Observation Score 7 - 10: 72.7% MACE over next 6 weeks - Early Invasive Strategies Current Medications: Current Medications Medications (Trade) Dose Ordered Sig/Jenna Start Time Stop Time Status Last Admin Dose Admin Diphenhydramine HCl (Benadryl) 25 mg 1X ONCE 01/15/20 03:30 01/15/20 03:31 DC 01/15/20 03:08 25 MG Fentanyl Citrate (Fentanyl 2ml Vial) 50 mcg PRN Q15MIN PRN 01/15/20 03:00 01/16/20 02:59 01/15/20 04:13 50 MCG Info (CONTRAST GIVEN -- Rx MONITORING) 1 each PRN DAILY PRN 01/15/20 03:45 01/17/20 03:44 Iohexol (Omnipaque 300 Mg/ml) 75 ml 1X ONCE 01/15/20 04:00 4/27/20 04:01 DC 01/15/20 04:09 75 ML Lorazepam (Ativan Inj) 2 mg 1X ONCE 01/15/20 04:30 01/15/20 04:31 DC 01/15/20 04:15 2 MG Metoclopramide HCl (Reglan Vial) 10 mg 1X ONCE 01/15/20 03:30 01/15/20 03:31 DC 01/15/20 03:10 10 MG Sodium Chloride 1,000 ml @ 1,000 mls/hr Q1H 01/15/20 03:00 01/15/20 03:59 DC 01/15/20 03:08 1,000 MLS/HR Allergies: Allergies: Allergies Coded Allergies Type Severity Reaction Last Updated Verified Penicillins Adverse Reaction Mild "DOESN'T WORK" 12/09/16 Yes Physical Exam: PE: Constitutional: Well developed, well nourished, no acute distress, non-toxic appearance. [] HENT: Normocephalic, atraumatic, bilateral external ears normal, oropharynx moist, no oral exudates, nose normal. [] Eyes: PERRLA, EOMI, conjunctiva normal, no discharge. [] Neck: Normal range of motion, no tenderness, supple, no stridor. [] Cardiovascular: Mildly tachycardic rate with regular rhythm[] Lungs & Thorax: Bilateral breath sounds clear to auscultation [] Abdomen: Bowel sounds normal, soft, with diffuse reported tenderness. [] Skin: Warm, dry, no erythema, no rash. [] Extremities: No tenderness, no cyanosis, no clubbing, ROM intact, no edema. [] Neurologic: Alert and oriented X 3, no focal deficits noted. [] Current Patient Data: Labs: Laboratory Tests Test 01/15/20 03:00 White Blood Count 14.7 x10^3/uL (4.0-11.0) H Red Blood Count 5.24 x10^6/uL (4.30-5.70) Hemoglobin 14.4 g/dL (13.0-17.5) Hematocrit 43.5 % (39.0-53.0) Mean Corpuscular Volume 83 fL (79-100) Mean Corpuscular Hemoglobin 28 pg (25-35) Mean Corpuscular Hemoglobin Concent 33 g/dL (31-37) Red Cell Distribution Width 14.1 % (11.5-14.5) Platelet Count 213 x10^3/uL (140-400) Neutrophils (%) (Auto) 79 % (31-73) H Lymphocytes (%) (Auto) 14 % (24-48) L Monocytes (%) (Auto) 6 % (0-9) Eosinophils (%) (Auto) 0 % (0-3) Basophils (%) (Auto) 0 % (0-3) Neutrophils # (Auto) 11.6 x10^3/uL (1.8-7.7) H Lymphocytes # (Auto) 2.0 x10^3/uL (1.0-4.8) Monocytes # (Auto) 0.9 x10^3/uL (0.0-1.1) Eosinophils # (Auto) 0.1 x10^3/uL (0.0-0.7) Basophils # (Auto) 0.1 x10^3/uL (0.0-0.2) Sodium Level 146 mmol/L (136-145) H Potassium Level 3.5 mmol/L (3.5-5.1) Chloride Level 104 mmol/L (98-107) Carbon Dioxide Level 24 mmol/L (21-32) Anion Gap 18 (6-14) H Blood Urea Nitrogen 11 mg/dL (8-26) Creatinine 1.1 mg/dL (0.7-1.3) Estimated GFR (Cockcroft-Gault) 94.5 BUN/Creatinine Ratio 10 (6-20) Glucose Level 128 mg/dL (70-99) H Calcium Level 9.9 mg/dL (8.5-10.1) Total Bilirubin 0.9 mg/dL (0.2-1.0) Aspartate Amino Transferase (AST) 16 U/L (15-37) Alanine Aminotransferase (ALT) 25 U/L (16-63) Alkaline Phosphatase 55 U/L (46-116) Total Protein 8.1 g/dL (6.4-8.2) Albumin 4.9 g/dL (3.4-5.0) Albumin/Globulin Ratio 1.5 (1.0-1.7) Lipase 140 U/L (73-393) Laboratory Tests 01/15/20 03:00 Laboratory Tests 01/15/20 03:00 Vital Signs: Vital Signs Date Time Temp Pulse Resp B/P (MAP) Pulse Ox O2 Delivery O2 Flow Rate FiO2 01/15/20 04:13 24 100 Room Air 01/15/20 02:40 97.4 79 97.4 EKG: EKG: [] Radiology/Procedures: Radiology/Procedures: [] Impression: PROCEDURE: CT ABD PELV W/ IV CONTRST ONLY Study: CT abdomen/pelvis with intravenous contrast Indication: Left lower quadrant abdominal pain. Comparison: 03/15/2017 Technique: Helical CT imaging performed of the abdomen and pelvis after the intravenous administration of 75 cc Omnipaque 300 contrast. Sagittal and coronal reformats were obtained. One or more of the following individualized dose reduction techniques were utilized for this examination: 1. Automated exposure control 2. Adjustment of the mA and/or kV according to patient size 3. Use of iterative reconstruction technique. Findings: The study is degraded by motion artifact. Chest: No acute abnormality. Liver: Unchanged. Gallbladder/Biliary Tree: Mild gallbladder distention without CT findings to suggest acute cholecystitis. Mild biliary tree prominence at the lorraine hepatis but the common duct tapers normally at the pancreatic head. Pancreas: No peripancreatic inflammatory changes definitively seen. Spleen: Within normal limits. Adrenal Glands: Unremarkable. Kidneys/Ureters/Bladder: No newly seen renal parenchymal abnormality. No nephrolithiasis or hydronephrosis. Unremarkable urinary bladder. Reproductive Organs: Unchanged. Colon: Segments of the colonic wall are mildly thickened but this could be related to incomplete distention. The appearance is very similar to the 2017 comparison. Appendix: The appendix is normal such as seen on image 44 series 3. Small Bowel: No pathologically dilated small bowel loops to suggest obstruction. Discrimination of scattered individual bowel loops is made difficult by a paucity of mesenteric fat. Stomach: Poorly evaluated due to underdistention. Vasculature: Unremarkable. Lymph Nodes: Within normal limits. Peritoneum and Body Wall: No free abdominopelvic fluid is well seen. No free air. Bones: Unusual configuration of the right hip joint favored positional as the patient's right leg is deviated outward. No acute fracture is identified. Broad levocurvature of the visualized thoracolumbar spine. Miscellaneous: None. Impression: 1. Taking into consideration motion degradation, no acute abnormality is seen throughout the abdomen or pelvis. Several segments of colon exhibit mild wall thickening but this is favored secondary to underdistention and the overall appearance of the bowel is very similar to the 2017 comparison. 2. Mild distention of the gallbladder without CT findings to suggest acute cholecystitis. Electronically signed by: INDIRA ARNETT MD (01/15/2020 4:26 AM) [id number] DICTATED and SIGNED BY: INDIRA ARNETT MD DATE: 01/15/20 0426 Course & Med Decision Making: Course & Med Decision Making Pertinent Labs and Imaging studies reviewed. (See chart for details) [] Dragon Disclaimer: Dragon Disclaimer: This electronic medical record was generated, in whole or in part, using a voice recognition dictation system. Departure Departure Impression: Primary Impression: Abdominal pain Qualified Codes: R10.32 - Left lower quadrant pain Additional Impressions: Nausea and vomiting Qualified Codes: R11.2 - Nausea with vomiting, unspecified Colitis Disposition: 01 HOME, SELF-CARE Condition: STABLE Referrals: NO PCP (PCP) Patient Instructions: Abdominal Pain, Colitis, Nausea and Vomiting Scripts Tramadol Hcl (TRAMADOL HCL) 50 Mg Tablet 50 MG PO Q6HRS PRN for PAIN, #12 TAB Prov: ALISSA FARIAS Jr. DO 01/15/20 Ondansetron (ONDANSETRON ODT) 4 Mg Tab.rapdis 1 TAB PO PRN Q6-8HRS PRN for NAUSEA, #15 TAB Prov: ALISSA FARIAS Jr. DO 01/15/20 Metronidazole (FLAGYL) 500 Mg Tablet 1 TAB PO TID, #30 TAB Prov: ALISSA FARIAS Jr. DO 01/15/20 ALISSA FARIAS Jr. DO Jan 15, 2020 04:39
[2020-01-15 04:42] VITALS: BP 133/79
[2020-01-16] MEDS ORDERED: ONDA4TAB7 PO (21:34)
[2020-01-16] MEDS ORDERED: PROM25SU33 RC (21:34)
== END 2020-01-15 04:50 | disposition home or self-care (01) ==
LOC: ER 02:30
DX: K52.9 Noninfective gastroenteritis and colitis, unspecified (principal); R10.32 Left lower quadrant pain; R11.2 Nausea with vomiting, unspecified; F10.10 Alcohol abuse, uncomplicated; F12.90 Cannabis use, unspecified, uncomplicated; Z88.0 Allergy status to penicillin
CPT/HCPCS: 36415; 74177; 80053; 83690; 85025; 96361; 96374; 96375; 96376; 99285; J1200; J2060; J2765; J3010; J7030; Q9967

== ENCOUNTER 2020-01-16 18:41 | Emergency (ER) | payer SELFPAY ==
[~2020-01-16] VITALS: Ht 180.3 cm; Wt 68.1 kg
[~2020-01-16 18:41] MED LIST changes: +METR500T PO; +ONDA4TAB12 PO; +TRAM50TA PO
[2020-01-16 19:09] LABS: BASO # 0.1 x10^3/uL (0.0-0.2); BASO % 1 % (0-3); EOS # 0.1 x10^3/uL (0.0-0.7); EOS % 1 % (0-3); HEMATOCRIT 44.3 % (39.0-53.0); HEMOGLOBIN 14.5 g/dL (13.0-17.5); LYMPH # 3.5 x10^3/uL (1.0-4.8); LYMPH % 40 % (24-48); MEAN CORPUSCULAR HEMOGLOBIN 27 pg (25-35); MEAN CORPUSCULAR HGB CONC 33 g/dL (31-37); MEAN CORPUSCULAR VOLUME 83 fL (79-100); MONO # 0.7 x10^3/uL (0.0-1.1); MONO % 9 % (0-9); NEUT # 4.3 x10^3/uL (1.8-7.7); NEUT % 50 % (31-73); PLATELET COUNT 229 x10^3/uL (140-400); RED BLOOD COUNT 5.33 x10^6/uL (4.30-5.70); RED CELL DISTRIBUTION WIDTH 14.1 % (11.5-14.5); WHITE BLOOD COUNT 8.6 x10^3/uL (4.0-11.0)
[2020-01-16] MEDS ORDERED: PROCHLORPERAZINE 10 MG/2 ML VIAL. IV ONE (19:15)
[2020-01-16] MEDS ORDERED: diphenhydrAMINE 50 MG/ML VIAL IVP ONE (19:15)
[2020-01-16] MEDS ORDERED: IV NORMAL SALINE 1000ML BAG 1,000 ML IV ONE ×2 (19:15)
[2020-01-16] MEDS ORDERED: FAMOTIDINE 20 MG/2 ML VIAL IVP ONE (19:15)
[2020-01-16 19:20] LABS: CALCIUM 10.4 mg/dL (8.5-10.1); CREATININE 1.2 mg/dL (0.7-1.3); GFR 85.4; POTASSIUM 3.3 mmol/L (3.5-5.1)
[2020-01-16 19:27] LABS: ALBUMIN 4.9 g/dL (3.4-5.0); ALBUMIN/GLOBULIN RATIO 1.5 (1.0-1.7); TOTAL BILIRUBIN 1.8 mg/dL (0.2-1.0); TOTAL PROTEIN 8.2 g/dL (6.4-8.2)
[2020-01-16] MEDS ORDERED: ONDANSETRON PF 4 MG/2 ML VIAL. IVP ONE (20:15)
[2020-01-16 21:15] LABS: BILIRUBIN,URINE NEGATIVE (NEG); CLARITY,URINE CLEAR; COLOR,URINE YELLOW; NITRITE,URINE NEGATIVE (NEG); PROTEIN,URINE NEGATIVE (NEG-TRACE); UROBILINOGEN,URINE 0.2 mg/dL (0.2 mg/dL)
[2020-01-16 21:16] VITALS: BP 153/90
[2020-01-16 21:21] LABS: BARBITURATES NEG (NEG); BENZODIAZEPINES NEG (NEG); CANNABINOIDS POS (NEG); COCAINE NEG (NEG); METHADONE NEG (NEG); OPIATES NEG (NEG); PHENCYCLIDINE NEG (NEG)
[2020-01-16 21:22] LABS: AMPHETAMINE/METHAMPHETAMINE NEG (NEG)
[2020-01-16 21:24] LABS: SQUAMOUS EPITHELIAL CELL,UR FEW /LPF
[2020-01-16 21:25] LABS: BACTERIA,URINE 0 /HPF (0-FEW)
[2020-01-16] MEDS ORDERED: ONDA4TAB7 PO (21:34)
[2020-01-16] MEDS ORDERED: PROM25SU33 RC (21:34)
--- NOTE | 2020-01-16 21:34 | PHYS DOC ---
Past Medical History Past Medical History: Alcoholism, Other Additional Past Medical Histor: abd pain, etoh abuse Past Surgical History: No Surgical History Smoking Status: Former Smoker Alcohol Use: Occasionally Drug Use: Marijuana Adult General Chief Complaint Chief Complaint: ABDOMINAL PAIN HPI HPI Patient is a 29 year old -[place] male with history of chronic a lcoholic gastritis, daily marijuana use who is evaluated in this emergency department yesterday for abdominal pain nausea and vomiting who presents with persistent abdominal pain nausea and vomiting and smelling of marijuana. Discontinued since discharge yesterday. Abdomen pains diffuse midepigastric and nonradiating. It is sharp. Vomiting is nonbilious, nonbloody. Patient denies bloody stools dark tarry stools. Reports increased anxiety dizziness and chest pain. No palpitations, shortness of breath. No fever chills. No other acute symptoms or complaints. [] Review of Systems Review of Systems ROS as per HPI All other systems were reviewed and found to be within normal limits, except as documented in this note. Current Medications Current Medications Current Medications Medications (Trade) Dose Ordered Sig/Jenna Start Time Stop Time Status Last Admin Dose Admin Diphenhydramine HCl (Benadryl) 50 mg 1X ONCE 01/16/20 19:15 01/16/20 19:16 DC 01/16/20 19:16 50 MG Famotidine (Pepcid Vial) 20 mg 1X ONCE 01/16/20 19:15 01/16/20 19:16 DC 01/16/20 19:16 20 MG Lorazepam (Ativan Inj) 1 mg 1X ONCE 01/16/20 19:15 01/16/20 19:16 DC 01/16/20 19:16 1 MG Ondansetron HCl (Zofran) 8 mg 1X ONCE 01/16/20 20:15 01/16/20 20:19 DC 01/16/20 20:20 8 MG Prochlorperazine Edisylate (Compazine) 10 mg 1X ONCE 01/16/20 19:15 01/16/20 19:16 DC 01/16/20 19:16 10 MG Sodium Chloride 1,000 ml @ 1,000 mls/hr 1X ONCE 01/16/20 19:15 01/16/20 20:14 DC 01/16/20 19:14 1,000 MLS/HR Allergies Allergies Allergies Coded Allergies Type Severity Reaction Last Updated Verified haloperidol Allergy Unknown 01/16/20 Yes Penicillins Adverse Reaction Mild "DOESN'T WORK" 12/09/16 Yes Physical Exam Physical Exam Constitutional: Well developed, well nourished, anxious, moderate discomfort secondary to pain. [] HENT: Normocephalic, atraumatic, bilateral external ears normal, oropharynx moist, nose normal. [] Eyes: PERRLA, EOMI, conjunctiva normal. [] Neck: Normal range of motion. [] Cardiovascular: Tachycardic, regular rhythm, no murmur [] Lungs & Thorax: Bilateral breath sounds clear to auscultation [] Abdomen: Bowel sounds normal, soft, mid-epigastric tenderness. [] Skin: Warm, dry. [] Back: No tenderness. [] Extremities: No tenderness, no edema. [] Neurologic: Alert and oriented X 3, normal motor function, normal sensory function, no focal deficits noted. [] Psychologic: Affect normal, judgement normal, mood normal. [] Current Patient Data Vital Signs Vital Signs Date Time Temp Pulse Resp B/P (MAP) Pulse Ox O2 Delivery O2 Flow Rate FiO2 01/16/20 20:46 96 24 138/91 (107) 100 Room Air 01/16/20 18:45 98.1 98.1 Lab Values Laboratory Tests Test 01/16/20 18:47 01/16/20 21:08 White Blood Count 8.6 x10^3/uL (4.0-11.0) Red Blood Count 5.33 x10^6/uL (4.30-5.70) Hemoglobin 14.5 g/dL (13.0-17.5) Hematocrit 44.3 % (39.0-53.0) Mean Corpuscular Volume 83 fL (79-100) Mean Corpuscular Hemoglobin 27 pg (25-35) Mean Corpuscular Hemoglobin Concent 33 g/dL (31-37) Red Cell Distribution Width 14.1 % (11.5-14.5) Platelet Count 229 x10^3/uL (140-400) Neutrophils (%) (Auto) 50 % (31-73) Lymphocytes (%) (Auto) 40 % (24-48) Monocytes (%) (Auto) 9 % (0-9) Eosinophils (%) (Auto) 1 % (0-3) Basophils (%) (Auto) 1 % (0-3) Neutrophils # (Auto) 4.3 x10^3/uL (1.8-7.7) Lymphocytes # (Auto) 3.5 x10^3/uL (1.0-4.8) Monocytes # (Auto) 0.7 x10^3/uL (0.0-1.1) Eosinophils # (Auto) 0.1 x10^3/uL (0.0-0.7) Basophils # (Auto) 0.1 x10^3/uL (0.0-0.2) Sodium Level 145 mmol/L (136-145) Potassium Level 3.3 mmol/L (3.5-5.1) L Chloride Level 104 mmol/L (98-107) Carbon Dioxide Level 21 mmol/L (21-32) Anion Gap 20 (6-14) H Blood Urea Nitrogen 15 mg/dL (8-26) Creatinine 1.2 mg/dL (0.7-1.3) Estimated GFR (Cockcroft-Gault) 85.4 BUN/Creatinine Ratio 13 (6-20) Glucose Level 116 mg/dL (70-99) H Calcium Level 10.4 mg/dL (8.5-10.1) H Total Bilirubin 1.8 mg/dL (0.2-1.0) H Aspartate Amino Transferase (AST) 19 U/L (15-37) Alanine Aminotransferase (ALT) 26 U/L (16-63) Alkaline Phosphatase 49 U/L (46-116) Total Protein 8.2 g/dL (6.4-8.2) Albumin 4.9 g/dL (3.4-5.0) Albumin/Globulin Ratio 1.5 (1.0-1.7) Lipase 133 U/L (73-393) Ethyl Alcohol Level < 10 mg/dL (0-10) Urine Collection Type Unknown Urine Color Yellow Urine Clarity Clear Urine pH 6.0 (<5.0-8.0) Urine Specific Center [place] 1.020 (1.000-1.030) Urine Protein Negative mg/dL (NEG-TRACE) Urine Glucose (UA) Negative mg/dL (NEG) Urine Ketones (Stick) Trace mg/dL (NEG) Urine Blood Negative (NEG) Urine Nitrite Negative (NEG) Urine Bilirubin Negative (NEG) Urine Urobilinogen Dipstick 0.2 mg/dL (0.2 mg/dL) Urine Leukocyte Esterase Negative (NEG) Urine RBC 1-2 /HPF (0-2) Urine WBC 1-4 /HPF (0-4) Urine Squamous Epithelial Cells Few /LPF Urine Bacteria 0 /HPF (0-FEW) Urine Mucus Mod /LPF Urine Opiates Screen Neg (NEG) Urine Methadone Screen Neg (NEG) Urine Barbiturates Neg (NEG) Urine Phencyclidine Screen Neg (NEG) Urine Amphetamine/Methamphetamine Neg (NEG) Urine Benzodiazepines Screen Neg (NEG) Urine Cocaine Screen Neg (NEG) Urine Cannabinoids Screen Pos (NEG) Urine Ethyl Alcohol Neg (NEG) Laboratory Tests 01/16/20 18:47 Laboratory Tests 01/16/20 18:47 EKG EKG [] Radiology/Procedures Radiology/Procedures [] Course & Med Decision Making Course & Med Decision Making Pertinent Labs and Imaging studies reviewed. (See chart for details) [Systems consistent with chronic gastritis versus and avoid associated second vomiting syndrome. Symptoms improved with treatment.] Dragon Disclaimer Dragon Disclaimer This electronic medical record was generated, in whole or in part, using a voice recognition dictation system. 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 Take nausea medications by mouth and use suppositories as needed. Drink clear liquids only for the next 12 to 24 ho urs and gradually increased to bland diet. Follow-up with your PCP for reevaluation. Return to the ED if new or worsening symptoms. Scripts Promethazine Hcl (PROMETHAZINE HCL) 25 Mg Supp.rect -Sep SUPP RC QID for 3 Days, #10 SUPP 0 Refills Prov: PRINCE SERVIN DO 01/16/20 Ondansetron Hcl (ZOFRAN) 4 Mg Tablet 1 TAB PO Q6HRS, #10 TAB 0 Refills Prov: PRINCE SERVIN DO 01/16/20 Problem Qualifiers PRINCE SERVIN DO Jan 16, 2020 21:34
== END 2020-01-16 21:37 | disposition home or self-care (01) ==
LOC: ER 18:41
DX: R10.13 Epigastric pain (principal); R11.2 Nausea with vomiting, unspecified; F10.10 Alcohol abuse, uncomplicated; F12.90 Cannabis use, unspecified, uncomplicated; Z87.891 Personal history of nicotine dependence; Z88.0 Allergy status to penicillin; Z88.6 Allergy status to analgesic agent
CPT/HCPCS: 36415; 80053; 80307; 81001; 83690; 85025; 96361; 96374; 96375; 99285; G0480; J0780; J1200; J2060; J2405; J3490; J7030

== ENCOUNTER 2021-02-09 05:23 | Emergency (ER) | payer SELFPAY ==
[~2021-02-09] VITALS: Ht 177.8 cm; Wt 77.3 kg
[~2021-02-09 05:23] MED LIST changes: +ONDA4TAB7 PO; +PROM25SU33 RC
[2021-02-09 05:33] VITALS: BP 139/82
--- NOTE | 2021-02-09 05:56 | ED.ADGEN ---
Past Medical History Past Medical History: Alcoholism, Other Additional Past Medical Histor: abd pain, etoh abuse Past Surgical History: No Surgical History Smoking Status: Current Every Day Smoker Alcohol Use: Occasionally Drug Use: Marijuana General Adult EDM: Chief Complaint: LACERATION/AVULSION HPI: HPI: Patient is a 30 year old male coming in for lacerations to his left upper arm. Patient states he was wrestling with his nephews when his arm actually went through a window on a door. No other injuries. Onset was 4 hours ago but came in now because she could not get to stop bleeding. Last tetanus greater than 10 years ago. Review of Systems: Review of Systems: All other systems within normal limits except for as noted in the HPI Current Medications: Current Medications Medications (Trade) Dose Ordered Sig/Jenna Start Time Stop Time Status Last Admin Dose Admin Diphtheria/ Tetanus/Acell Pertussis (ADACEL TDap SYRINGE) 0.5 ml ONCE ONCE 02/09/21 06:00 02/09/21 06:01 02/09/21 05:49 0.5 ML Lidocaine/ Epinephrine (LIDOCAINE 2%-EPI 1:100,000 multi-dose) 20 ml 1X ONCE 02/09/21 06:00 02/09/21 06:01 02/09/21 05:49 20 ML Allergies: Allergies: Allergies Coded Allergies Type Severity Reaction Last Updated Verified haloperidol Allergy Intermediate 02/09/21 Yes Penicillins Adverse Reaction Mild "DOESN'T WORK" 12/09/16 Yes Physical Exam: PE: Constitutional: Well developed, well nourished, no acute distress, non-toxic appearance. [] HENT: Normocephalic, atraumatic, bilateral external ears normal, nose normal. [] Eyes: PERRLA, conjunctiva normal, no discharge. [] Neck: No rigidity, supple, no stridor. [] Cardiovascular: Regular rate and rhythm, brisk cap refill [] Lungs & Thorax: Non labored symmetric respirations, no tachypnea or respiratory distress [] Abdomen: Soft, nondistended. Skin: Warm, dry, no erythema, no rash. 2 lacerations left upper arm, the upper 1 to 4 cm, lower 1 3 cm [] Back: Unremarkable Extremities: No deformities, range of motion grossly intact, no lower extremity edema [] Neurologic: Alert and oriented X 3, no focal deficits noted. [] Psychologic: Affect normal, judgement normal, mood normal. [] Current Patient Data: Vital Signs: Vital Signs Date Time Temp Pulse Resp B/P (MAP) Pulse Ox O2 Delivery O2 Flow Rate FiO2 02/09/21 05:33 98.7 85 18 139/82 (101) 97 Room Air 98.7 EKG: EKG: [] Heart Score: C/O Chest Pain: No Risk Factors: Risk Factors: DM, Current or recent (<one month) smoker, HTN, HLP, family history of CAD, obesity. Risk Scores: Score 0 - 3: 2.5% MACE over next 6 weeks - Discharge Home Score 4 - 6: 20.3% MACE over next 6 weeks - Admit for Clinical Observation Score 7 - 10: 72.7% MACE over next 6 weeks - Early Invasive Strategies Radiology/Procedures: Radiology/Procedures: Patient was prepped and draped in normal fashion, wound irrigated and cleansed with normal saline. The 7 cm wound was anesthetized with lidocaine 2% with epinephrine. Depth of wound was examined and no foreign bodies found. Wound was approximated with 40 suture in a simple interrupted pattern. 9 sutures placed without complication. Wound was coated with antibiotic ointment and dressed with a nonadherent bandage [] Course & Med Decision Making: Course & Med Decision Making Pertinent Labs and Imaging studies reviewed. (See chart for details) [] Tetanus updated Dragon Disclaimer: Genoveva Disclaimer: This electronic medical record was generated, in whole or in part, using a voice recognition dictation system. Departure Departure Impression: Primary Impression: Laceration of left upper extremity Disposition: HOME / SELF CARE / HOMELESS Condition: STABLE Referrals: NO PCP (PCP) Patient Instructions: Laceration Care, Adult Additional Instructions: Return in 7 to 10 days for suture removal. Monitor for signs of infection. KATTY BELTRAN MD February 09, 2021 05:56
[2021-02-09] MEDS ORDERED: DIPH,PERTUSS(ACELL),TET VAC/PF 0.5 ML SYRINGE. VAX IM ONE (06:00)
[2021-02-09] MEDS ORDERED: LIDOCAINE 2%/EPI 1:100,000 20 ML VIAL. INJ ONE (06:00)
== END 2021-02-09 05:58 | disposition home or self-care (01) ==
LOC: ER 05:23
DX: S41.112A Laceration without foreign body of left upper arm, initial encounter (principal); F17.200 Nicotine dependence, unspecified, uncomplicated; Z88.0 Allergy status to penicillin; Z88.8 Allergy status to other drugs, medicaments and biological substances; Y28.8XXA Contact with other sharp object, undetermined intent, initial encounter; Y93.89 Activity, other specified; Y92.89 Other specified places as the place of occurrence of the external cause; Y99.8 Other external cause status
CPT/HCPCS: 12002; 90471; 90715; 99283; J3490

== ENCOUNTER 2021-02-18 13:15 | Emergency (ER) | payer SELFPAY ==
[~2021-02-18] VITALS: Ht 180.3 cm; Wt 77.0 kg
[2021-02-18 13:29] VITALS: BP 134/66
--- NOTE | 2021-02-18 14:02 | PHYS DOC ---
Past Medical History Past Medical History: Alcoholism, Other Additional Past Medical Histor: abd pain, etoh abuse Past Surgical History: No Surgical History Smoking Status: Current Every Day Smoker Alcohol Use: Occasionally Drug Use: Marijuana General Adult EDM: Chief Complaint: SUTURE/STAPLE REMOVAL HPI: HPI: 28-year-old male presents the ED for suture removal, sutures placed more than 1 week ago. Patient denies any complications -no purulent drainage, rash, wound dehiscence or pain. Review of Systems: Review of Systems: Constitutional: Denies fever or chills. [] Eyes: Denies change in visual acuity. [] HENT: Denies nasal congestion or sore throat. [] Respiratory: Denies cough or shortness of breath. [] Cardiovascular: Denies chest pain or edema. [] GI: Denies nausea or vomiting Musculoskeletal: Denies back pain or joint pain. [] Integument: Denies rash or blistering lesions Neurologic: Denies headache, neck pain Psychiatric: Denies depression or anxiety. [] Heart Score: C/O Chest Pain: No Risk Factors: Risk Factors: DM, Current or recent (<one month) smoker, HTN, HLP, family history of CAD, obesity. Risk Scores: Score 0 - 3: 2.5% MACE over next 6 weeks - Discharge Home Score 4 - 6: 20.3% MACE over next 6 weeks - Admit for Clinical Observation Score 7 - 10: 72.7% MACE over next 6 weeks - Early Invasive Strategies Allergies: Allergies: Allergies Coded Allergies Type Severity Reaction Last Updated Verified haloperidol Allergy Intermediate 02/09/21 Yes Penicillins Adverse Reaction Mild "DOESN'T WORK" 12/09/16 Yes Physical Exam: PE: Constitutional: Well developed, well nourished, no acute distress, non-toxic appearance. HENT: Normocephalic, atraumatic, Eyes: EOMI, conjunctiva normal, no discharge. Neck: Normal range of motion, supple, Cardiovascular: S1/2 present, regular rhythm Lungs & Thorax: Speaking in full sentences, bilateral equal chest rise, no tachypnea or increased work of breathing Skin: Warm, dry, 8 simple interrupted sutures easily removed from the laceration sites of left lateral arm, wound margins well approximated with no dehiscence, no keloids or signs of infection Extremities: No tenderness, no cyanosis, Neurologic: Alert and oriented X 3, no focal deficits noted. [] Psychologic: Affect normal, judgement normal, mood normal. [] Current Patient Data: Vital Signs: Vital Signs Date Time Temp Pulse Resp B/P (MAP) Pulse Ox O2 Delivery O2 Flow Rate FiO2 02/18/21 13:29 98.2 70 16 134/66 (88) 99 Room Air 98.2 EKG: EKG: [] Radiology/Procedures: Radiology/Procedures: [] Course & Med Decision Making: Course & Med Decision Making Pertinent Labs and Imaging studies reviewed. (See chart for details) Encounter for suture removal. No complications. Will discharge home with strict ED return precautions were given for infection, rash, erythema, pain) drainage. Encouraged urgent outpatient follow-up with PMD for routine care. Life-threatening processes were considered but are low suspicion at this time, given history, physical exam and ED workup. Pt was educated on all prescription medications and adverse effects. All patient's questions were answered and pt was stable at time of discharge. Life/limb-threatening differential includes but is not limited to, trauma (fracture, dislocation, laceration, compartment syndrome, tendon or ligament injury), neurovascular injury or deficitcva/tia, infection (osteomyelitis, abscess, cellulitis, septic arthritis, necrotizing fasciitis), deep vein thrombosis, renal/cardiac/liver disease, medication adverse effect, lymphedema /anasarca, vascular insufficiency or malignancy, I spoken with the patient and her caregivers. I explained the patient's condi tion, diagnoses and treatment plan based on the information available to me at this time. I have answered the patient and her caregiver's questions and addressed any concerns. The patient and her caregivers have a good understanding of patient's diagnosis, condition and treatment plan as can be expected at this point. Vital signs have been stable. Patient's condition is stable and appropriate for discharge from the emergency department. Patient will pursue further outpatient evaluation with primary care physician or other designated or consulting physician as outlined in the discharge instructions. The patient and/or caregivers are agreeable to this plan of care and follow-up instructions have been explained in detail. The patient and/or caregivers have received these instructions in written form and have expressed an understanding of the discharge instructions. The patient and/or caregivers are aware that any significant change of condition or worsening of symptoms should prompt immediate return to this or the closest emergency department or call to 911. Genoveva Disclaimer: Genoveva Disclaimer: This electronic medical record was generated, in whole or in part, using a voice recognition dictation system. Departure Departure Impression: Primary Impression: Encounter for removal of sutures Disposition: 01 HOME / SELF CARE / HOMELESS Condition: STABLE Referrals: NO PCP (PCP) Follow-up for routine care or FOLLOW UP WITH FAMILY MEDICINE: [address] [place] [address] Patient Instructions: Suture Removal Additional Instructions: EMERGENCY DEPARTMENT GENERAL DISCHARGE INSTRUCTIONS Thank you for coming to [facility] Emergency Department (ED) today and trusting us with you care. We trust that you had a positive experience in our Emergency Department. If you wish to speak to the department management, you may call the Director at [phone]. YOUR FOLLOW UP INSTRUCTIONS ARE FOLLOWS: 1. Do you have a private Doctor? If you do not have a private doctor, please ask for a resource list of physicians or clinics that may be able to assist you with follow up care. 2. The Emergency Physicain has interpreted your x-rays. The X-Ray specialist will also review them. If there is a change in the findings, you will be notified in 48 hours when at all possible. 3. A lab test or culture has been done, your results will be reviewed and you will be notified if you need a change in treatment. ADDITIONAL INSTRUCTIONS AND INFORMATION: 1. Your care today has been supervised by a physician who is specially trained in emergency care. Many problems require more than one evaluation for a complete diagnosis and treatment. We recommend that you schedule your follow up appointment as recommended to ensure complete treatment of you illness or injury. If you are unable to obtain follow up care and continue to have a problem, or if your condition worsens, we recommend that you return to the ED. 2. We are not able to safely determine your condition over the phone nor are we able to give sound medical advice over the phone. For these safety reasons, if you call for medical advice we will ask you to come to the ED for further evaluation. 3. If you have any questions regarding these discharge instructions please call the ED at [phone]. SAFETY INFORMATION: In the interest of safety, wellness, and injury prevention; we encourage you to wear your sealbelt, if you smoke; quite smoking, and we encourage family to use a protective helmet for bicycling and other sporting events that present an increased risk for head injury. IF YOUR SYMPTOMS WORSEN OR NEW SYMPTOMS DEVELOP, OR YOU HAVE CONCERNS ABOUT YOUR CONDITION; OR IF YOUR CONDITION WORSENS WHILE YOU ARE WAITING FOR YOUR FOLLOW UP APPOINTMENT; EITHER CONTACT YOUR PRIMARY CARE DOCTOR, THE PHYSICIAN WHOSE NAME AND NUMBER YOU WERE GIVEN, OR RETURN TO THE ED IMMEDIATELY. [facility]ITAL[facility]ANETTE DO Feb 18, 2021 14:02
== END 2021-02-18 14:10 | disposition home or self-care (01) ==
LOC: ER 13:15
DX: S41.112D Laceration without foreign body of left upper arm, subsequent encounter (principal); F17.200 Nicotine dependence, unspecified, uncomplicated; X58.XXXD Exposure to other specified factors, subsequent encounter
CPT/HCPCS: 99281

== ENCOUNTER 2022-02-13 13:22 | Emergency (ER) | payer SELFPAY ==
[~2022-02-13] VITALS: Ht 180.3 cm; Wt 72.7 kg
[~2022-02-13 13:22] MED LIST changes: +DICY20TA PO; -DICY20TA3 PO
[2022-02-13 13:28] VITALS: BP 114/74
--- NOTE | 2022-02-13 13:42 | PHYS DOC ---
Past Medical History Past Medical History: Alcoholism, Other Additional Past Medical Histor: abd pain, etoh abuse, inflammed pancreas (XIOMARA HANNA APRN) Past Surgical History: No Surgical History (XIOMARA HANNA APRN) Smoking Status: Current Every Day Smoker Alcohol Use: Occasionally Drug Use: Marijuana (XIOMARA HANNA APRN) General Adult EDM: Chief Complaint: ABDOMINAL PAIN HPI: HPI: Patient is a 31-year-old male who presents today via [facility] with abdominal pain. Patient states his pain started last evening, he said the pain is mostly located in his left lower quadrant his bellybutton area, he states he has been dry heaving because he has not had anything to eat or drink to vomit. Patient does report having blood in his stool on a weekly basis, he denies any past medical history of diverticulitis, Crohn's disease, or ulcerative colitis. Patient does state that he did have a history of common abdominal pain with nausea and vomiting approximately 4 to 5 years ago and they attributed to this to smoking marijuana, state patient states that he has not been smoking marijuana he states he has been eating it and edible form but he says he has been limiting the amount of edibles that he has been eating, he states that he has not had any in the last 48 hours. (XIOMARA HANNA IMPORT/EXPORT ADMINISTRATOR) Review of Systems: Review of Systems: Constitutional: Denies fever or chills. [] Eyes: Denies change in visual acuity. [] HENT: Denies nasal congestion or sore throat. [] Respiratory: Denies cough or shortness of breath. [] Cardiovascular: Denies chest pain or edema. [] GI: abdominal pain, nausea, vomiting, bloody stools DENIES diarrhea. [] : Denies dysuria. [] Musculoskeletal: Denies back pain or joint pain. [] Integument: Denies rash. [] Neurologic: Denies headache, focal weakness or sensory changes. [] Endocrine: Denies polyuria or polydipsia. [] Lymphatic: Denies swollen glands. [] Psychiatric: Denies depression or anxiety. [] (XIOMARA HANNA IMPORT/EXPORT ADMINISTRATOR) Heart Score: C/O Chest Pain: No Risk Factors: Risk Factors: DM, Current or recent (<one month) smoker, HTN, HLP, family history of CAD, obesity. Risk Scores: Score 0 - 3: 2.5% MACE over next 6 weeks - Discharge Home Score 4 - 6: 20.3% MACE over next 6 weeks - Admit for Clinical Observation Score 7 - 10: 72.7% MACE over next 6 weeks - Early Invasive Strategies (XIOMARA HANNA APRN) Current Medications: Current Medications Medications (Trade) Dose Ordered Sig/Jenna Start Time Stop Time Status Last Admin Dose Admin Famotidine (Pepcid Vial) 20 mg 1X ONCE 02/13/22 13:45 02/13/22 13:46 UNV Fentanyl Citrate (Fentanyl 2ml Vial) 50 mcg 1X ONCE 02/13/22 13:45 02/13/22 13:46 UNV Ondansetron HCl (Zofran) 4 mg 1X ONCE 02/13/22 13:45 02/13/22 13:46 UNV Sodium Chloride 1,000 ml @ 999 mls/hr 1X ONCE 02/13/22 13:45 02/13/22 14:45 UNV (XIOMARA HANNA IMPORT/EXPORT ADMINISTRATOR) Allergies: Allergies: Allergies Coded Allergies Type Severity Reaction Last Updated Verified haloperidol Allergy Intermediate 02/09/21 Yes Penicillins Adverse Reaction Mild "DOESN'T WORK" 12/09/16 Yes (XIOMARA HANNA IMPORT/EXPORT ADMINISTRATOR) Physical Exam: PE: Constitutional: Well developed, well nourished, MILD distress, non-toxic appearance. [] HENT: Normocephalic, atraumatic, bilateral external ears normal, oropharynx moist, no oral exudates, nose normal. [] Eyes: PERRLA, EOMI, conjunctiva normal, no discharge. [] Neck: Normal range of motion, no tenderness, supple, no stridor. [] Cardiovascular:Heart rate regular rhythm, no murmur [] Lungs & Thorax: Bilateral breath sounds clear to auscultation [] Abdomen: Abdomen is flat and firm, patient is very guarded with the left lower quadrant, bowel sounds are hypoactive, rectal exam performed at the bedside fecal occult sample obtained, RN at the bedside during this part of the exam Skin: Warm, dry, no erythema, no rash. [] Back: No tenderness, no CVA tenderness. [] Extremities: No tenderness, no cyanosis, no clubbing, ROM intact, no edema. [] Neurologic: Alert and oriented X 3, normal motor function, normal sensory function, no focal deficits noted. [] Psychologic: Affect normal, judgement normal, mood normal. [] (XIOMARA HANNA APRN) Current Patient Data: Labs: Laboratory Tests Test 02/13/22 13:30 02/13/22 15:17 02/13/22 16:25 White Blood Count 6.0 x10^3/uL Red Blood Count 4.97 x10^6/uL Hemoglobin 14.3 g/dL Hematocrit 42.3 % Mean Corpuscular Volume 85 fL Mean Corpuscular Hemoglobin 29 pg Mean Corpuscular Hemoglobin Concent 34 g/dL Red Cell Distribution Width 14.3 % Platelet Count 222 x10^3/uL Neutrophils (%) (Auto) 74 % Lymphocytes (%) (Auto) 19 % Monocytes (%) (Auto) 7 % Eosinophils (%) (Auto) 0 % Basophils (%) (Auto) 0 % Neutrophils # (Auto) 4.4 x10^3/uL Lymphocytes # (Auto) 1.1 x10^3/uL Monocytes # (Auto) 0.4 x10^3/uL Eosinophils # (Auto) 0.0 x10^3/uL Basophils # (Auto) 0.0 x10^3/uL Stool Occult Blood Negative Sodium Level 144 mmol/L Potassium Level 4.0 mmol/L Chloride Level 107 mmol/L Carbon Dioxide Level 26 mmol/L Anion Gap 11 Blood Urea Nitrogen 11 mg/dL Creatinine 0.8 mg/dL Estimated GFR (Cockcroft-Gault) 134.7 BUN/Creatinine Ratio 14 Glucose Level 106 mg/dL Lactic Acid Level 2.3 mmol/L 2.1 mmol/L Calcium Level 8.4 mg/dL Total Bilirubin 0.6 mg/dL Aspartate Amino Transf (AST/SGOT) 20 U/L Alanine Aminotransferase (ALT/SGPT) 28 U/L Alkaline Phosphatase 60 U/L Total Protein 7.6 g/dL Albumin 3.9 g/dL Albumin/Globulin Ratio 1.1 Lipase 68 U/L Urine Collection Type Unknown Urine Color (Auto) Yellow Urine Turbidity Clear Urine pH (Auto) 6.5 Urine Specific [place] 1.027 Urine Protein (Auto) Negative mg/dL Urine Glucose (Auto)(UA) Negative mg/dL Urine Ketones (Auto) Negative mg/dL Urine Blood (Auto) Negative Urine Nitrite Negative Urine Bilirubin (Auto) Negative Urine Urobilinogen (Auto) Normal mg/dL Urine Leukocyte Esterase (Auto) Negative Urine RBC 1-2 /HPF Urine WBC 1-4 /HPF Urine Squamous Epithelial Cells Occ /LPF Urine Bacteria 0 /HPF Urine Mucus Marked /LPF Urine Opiates Screen Neg Urine Methadone Screen Neg Urine Barbiturates Neg Urine Phencyclidine Screen Neg Urine Amphetamine/Methamphetamine Neg Urine Benzodiazepines Screen Neg Urine Cocaine Screen Neg Urine Cannabinoids Screen Pos Urine Ethyl Alcohol Pos Current Medications Medications (Trade) Dose Ordered Sig/Jenna Route PRN Reason Start Time Stop Time Status Last Admin Dose Admin Sodium Chloride 1,000 ml @ 999 mls/hr 1X ONCE IV 02/13/22 13:45 02/13/22 14:45 DC 02/13/22 13:57 Ondansetron HCl (Zofran) 4 mg 1X ONCE IVP 02/13/22 13:45 02/13/22 13:46 DC 02/13/22 13:58 Fentanyl Citrate (Fentanyl 2ml Vial) 50 mcg 1X ONCE IVP 02/13/22 13:45 02/13/22 13:46 DC 02/13/22 13:56 Famotidine (Pepcid Vial) 20 mg 1X ONCE IVP 02/13/22 13:45 02/13/22 13:46 DC 02/13/22 13:57 Sodium Chloride 1,000 ml @ 999 mls/hr 1X ONCE IV 02/13/22 15:45 02/13/22 16:45 DC 02/13/22 16:00 Vital Signs: Vital Signs Date Time Temp Pulse Resp B/P (MAP) Pulse Ox O2 Delivery O2 Flow Rate FiO2 02/13/22 13:56 20 99 Room Air 02/13/22 13:28 98.3 76 20 114/74 (87) 99 Room Air 98.3 Vital Signs Date Time Temp Pulse Resp B/P (MAP) Pulse Ox O2 Delivery O2 Flow Rate FiO2 02/13/22 13:28 98.3 76 20 114/74 (87) 99 Room Air 98.3 (XIOMARA HANNA APRN) EKG: EKG: [] (XIOMARA HANNA APRN) Radiology/Procedures: Radiology/Procedures: [REASON: LLQ ABDOMINAL PAIN PROCEDURE: CT ABDOMEN PELVIS WO CONTRAST Exam: CT abdomen/pelvis without intravenous contrast Indication: Left lower quadrant abdominal pain Comparison: CT abdomen and pelvis 01/15/2020 Technique: Helical CT imaging performed of the abdomen and pelvis without the use of intravenous contrast. Sagittal and coronal reformats were obtained. One or more of the following individualized dose reduction techniques were utilized for this examination: 1. Automated exposure control 2. Adjustment of the mA and/or kV according to patient size 3. Use of iterative reconstruction technique. Findings: Inherently limited evaluation without intravenous contrast. Lower chest: The heart is normal in size. Lung bases are clear. Liver: Normal noncontrast appearance of the liver. Gallbladder/Biliary Tree: Normal. Pancreas: Normal. Spleen: Normal. Adrenal Glands: Normal. Kidneys/Ureters/Bladder: Normal. No nephrolithiasis. Ureters and bladder are nor mal. Reproductive Organs: Normal. Stomach, small bowel, and colon: Stomach is normal. There is no small bowel obstruction. Appendix is normal. The colon is normal. Vasculature: The abdominal aorta is normal in caliber. Lymph Nodes: No lymphadenopathy. Peritoneum and retroperitoneum: No free fluid or free air. Bones: No acute osseous abnormality. Miscellaneous: None. IMPRESSION: No acute abnormality in the abdomen and pelvis. Electronically signed by: Angelica Taylor MD (02/13/2022 3:00 PM) [id number] DICTATED and SIGNED BY: ANGELICA TAYLOR MD DATE: 02/13/22 1450 ] (XIOMARA HANNA APRN) Course & Med Decision Making: Course & Med Decision Making Pertinent Labs and Imaging studies reviewed. (See chart for details) 1729 reassessment of patient patient is lying on his stomach playing on his phone, in no acute distress vital signs are all within normal limits, patient has not had any nausea or vomiting since we gave him medications here in the emergency department. I reviewed laboratory and radiological results with patient I did inform him there was no acute findings at this time, I did inform him that his UDS did come back positive for alcohol and THC which can cause abdominal pain and nausea and vomiting. I advised the patient to follow a clear liquid diet for the next 24 hours and then advance to a brat diet then advance as tolerated. Over the next 30 days I advised the patient to remove caffeine, tobacco, and cannabinoids from his diet to see if that will improve his abdominal pain and nausea and vomiting. Patient will also be given information for primary care physician since he states he does not have one at this time I will also give him information on a clear liquid diet which she should follow for the next 24 hours. Patient verbalized an understanding of this and is agreeable with the plan of care. (XIOMARA HANNA APRN) Dragon Disclaimer: Dragon Disclaimer: This electronic medical record was generated, in whole or in part, using a voice recognition dictation system. (XIOMARA HANNA APRN) Departure Departure Impression: Primary Impression: Abdominal pain Qualified Codes: R10.84 - Generalized abdominal pain Disposition: HOME / SELF CARE / HOMELESS Condition: STABLE Referrals: NO PCP (PCP) Patient Instructions: Abdominal Pain, Clear Liquid Diet Additional Instructions: Zofran take 1 tablet every 6-8 hours as needed for nausea or vomiting, use with caution this may is because constipation, when taking this medication take it with a sip of water and wait 30 to 45 minutes and then try clear liquids. Pepcid 20 mg take 1 tablet twice daily over the next 30 days Follow a clear liquid diet for the next 24 hours then advance to a brat diet which can include (bananas, rice, applesauce, toast and mashed potatoes), then advance your diet as tolerated avoiding caffeine, nicotine, and alcohol Follow-up with your primary care physician one of the prime physicians located on the discharge brochure or one of the listed clinics below for further and management of your abdominal pain [facility] [address] [place] [address] [facility] [address] [place] [address] [facility] [address] [place] [address] [facility] [address] [place] [address] [facility] [address] [place] [address] [facility] [address] [place] [address] [facility] [address] [place] [address] [facility] [address] [place] [address] [facility] [address] [place] [address] [facility] [address] [place] [address] Scripts Ondansetron (ONDANSETRON ODT) 4 Mg Tab.rapdis 1 TAB PO PRN Q6-8HRS, #16 TAB Prov: XIOMARA HANNA IMPORT/EXPORT ADMINISTRATOR 02/13/22 Attending Signature Attending Signature I have reviewed the PA/CAREER TECHNICAL COUNSELOR's note and plan of care. I was available for consultation as needed during the patient's visit in the emergency department. I agree with the clinical impression, plan, and disposition. (NIR FELIX DO) XIOMARA HANNA IMPORT/EXPORT ADMINISTRATOR February 13, 2022 13:41 NIR FELIX DO Feb 27, 2022 14:27
[2022-02-13] MEDS ORDERED: ONDANSETRON PF 4 MG/2 ML VIAL. IVP ONE (13:45)
[2022-02-13] MEDS ORDERED: FAMOTIDINE 20 MG/2 ML VIAL IVP ONE (13:45)
[2022-02-13] MEDS ORDERED: fentaNYL PF VIAL 100 MCG/2 ML VIAL IVP ONE (13:45)
[2022-02-13] MEDS ORDERED: IV NORMAL SALINE 1000ML BAG 1,000 ML IV ONE ×2 (13:45→15:45)
[2022-02-13 13:46] LABS: BASO % 0 % (0-3); EOS % 0 % (0-3); HEMATOCRIT 42.3 % (39.0-53.0); HEMOGLOBIN 14.3 g/dL (13.0-17.5); LYMPH # 1.1 x10^3/uL (1.0-4.8); LYMPH % 19 % (24-48); MEAN CORPUSCULAR HEMOGLOBIN 29 pg (25-35); MEAN CORPUSCULAR HGB CONC 34 g/dL (31-37); MEAN CORPUSCULAR VOLUME 85 fL (79-100); MONO # 0.4 x10^3/uL (0.0-1.1); MONO % 7 % (0-9); NEUT # 4.4 x10^3/uL (1.8-7.7); NEUT % 74 % (31-73); PLATELET COUNT 222 x10^3/uL (140-400); RED BLOOD COUNT 4.97 x10^6/uL (4.30-5.70); RED CELL DISTRIBUTION WIDTH 14.3 % (11.5-14.5)
[2022-02-13 13:50] LABS: FECAL OB PT NEGATIVE (NEG)
[2022-02-13 13:58] LABS: CALCIUM 8.4 mg/dL (8.5-10.1); CREATININE 0.8 mg/dL (0.7-1.3); GFR 134.7
[2022-02-13 14:03] LABS: ALBUMIN 3.9 g/dL (3.4-5.0); ALBUMIN/GLOBULIN RATIO 1.1 (1.0-1.7); TOTAL BILIRUBIN 0.6 mg/dL (0.2-1.0); TOTAL PROTEIN 7.6 g/dL (6.4-8.2)
--- NOTE | 2022-02-13 15:03 | RAD ---
Exam: CT abdomen/pelvis without intravenous contrast Indication: Left lower quadrant abdominal pain Comparison: CT abdomen and pelvis 01/15/2020 Technique: Helical CT imaging performed of the abdomen and pelvis without the use of intravenous cont rast. Sagittal and coronal reformats were obtained. One or more of the following individualized dose reduction techniques were utilized for this examinat ion: 1. Automated exposure control 2. Adjustment of the mA and/or kV according to patient size 3. Use of iterative reconstruction technique. Findings: Inherently limited evaluation without intravenous contrast. Lower chest: The heart is normal in size. Lung bases are clear. Liver: Normal noncontrast appearance of the liver. Gallbladder/Biliary Tree: Normal. Pancreas: Normal. Spleen: Normal. Adrenal Glands: Normal. Kidneys/Ureters/Bladder: Normal. No nephrolithiasis. Ureters and bladder are normal. Reproductive Organs: Normal. Stomach, small bowel, and colon: Stomach is normal. There is no small bowel obstruction. Appendix is normal. The colon is normal. Vasculature: The abdominal aorta is normal in caliber. Lymph Nodes: No lymphadenopathy. Peritoneum and retroperitoneum: No free fluid or free air. Bones: No acute osseous abnormality. Miscellaneous: None. IMPRESSION: No acute abnormality in the abdomen and pelvis. Electronically signed by: Angelica Taylor MD (02/13/2022 3:00 PM) [id number]
[2022-02-13 16:47] LABS: BACTERIA,URINE 0 /HPF (0-FEW)
[2022-02-13 17:22] LABS: BARBITURATES NEG (NEG); BENZODIAZEPINES NEG (NEG); CANNABINOIDS POS (NEG); COCAINE NEG (NEG); METHADONE NEG (NEG); OPIATES NEG (NEG); PHENCYCLIDINE NEG (NEG)
[2022-02-13 17:26] LABS: AMPHETAMINE/METHAMPHETAMINE NEG (NEG)
[2022-02-13] MEDS ORDERED: ONDA4TAB12 PO (17:43)
== END 2022-02-13 18:10 | disposition home or self-care (01) ==
LOC: ER 13:22
DX: R10.32 Left lower quadrant pain (principal); R10.84 Generalized abdominal pain; R11.2 Nausea with vomiting, unspecified; F17.200 Nicotine dependence, unspecified, uncomplicated; Z88.0 Allergy status to penicillin; Z88.8 Allergy status to other drugs, medicaments and biological substances
CPT/HCPCS: 36415; 74176; 80053; 80307; 81001; 82274; 83605; 83690; 85025; 96361; 96374; 96375; 99284; J2405; J3010; J3490; J7030